=== PATIENT | male | born 1980 | race Caucasian/White ===

== ENCOUNTER → 2018-01-27 14:23 | Outpatient (CLI) | payer OTHER, MEDICAID, SELFPAY ==
--- NOTE | 2018-01-27 14:26 | DI.RAD.S_ITS ---
PROCEDURE: XR THORACIC SPINE 3V INDICATIONS: acute lower thoracic pain TECHNIQUE: 3 views of the thoracic spine were acquired. COMPARISON: None. FINDINGS: Bones: No fractures or dislocations. No suspicious bony lesions. 12 pairs of ribs are noted, and appear intact where visualized. Soft tissues: No paravertebral stripe thickening. IMPRESSION: Normal exam. Dictated by: Alan MÉNDEZ Interpreted: Ishan Emerson MD on 01/27/2018 at 15:18 Approved by: Ishan Emerson M.D. on 01/27/2018 at 17:12
== END ==
PROVIDERS: Family Provider Family Medicine; PCP Family Medicine; Visit Provider Family Medicine
DX: M54.6 Pain in thoracic spine (principal)
CPT/HCPCS: 72072

== ENCOUNTER → 2018-09-04 16:40 | Outpatient (CLI) | payer OTHER, MEDICAID, SELFPAY ==
--- NOTE | 2018-09-04 16:42 | DI.RAD.S_ITS ---
PROCEDURE: XR TOE LT MIN 2V INDICATIONS: toe dislocation TECHNIQUE: 3 views of the first toe(s) acquired. COMPARISON: None. FINDINGS: Bones: No dislocations. No suspicious bony lesions. There is a diagonal fracture through the lateral base of the first distal phalanx, minimally displaced. Soft tissues: No suspicious soft tissue densities. IMPRESSION: No soft tissue trauma found but there is a diagonal fracture along the lateral articular margin at the base of the first distal phalanx, minimally displaced. No dislocation seen. Dictated by: Ishan Emerson M.D. on 09/04/2018 at 15:59 Approved by: Ishan Emerson M.D. on 09/04/2018 at 16:01
== END ==
PROVIDERS: PCP Family Medicine; Visit Provider Family Medicine
DX: S92.422A Displaced fracture of distal phalanx of left great toe, initial encounter for closed fracture (principal)
CPT/HCPCS: 73660

== ENCOUNTER → 2018-10-07 12:17 | Outpatient (CLI) | payer OTHER, MEDICAID, SELFPAY ==
[2018-10-07 12:49] LABS: Add Manual Diff / Slide Review NO; Basophils Absolute Auto 100 /uL (0-100); Basophils Percent Auto 1.3 % (0-2); Eosinophils Absolute Auto 300 /uL (0-450); Eosinophils Percent Auto 6.7 % (2-4); Hematocrit 40.9 % (41-53); Hemoglobin 14.2 g/dL (13.5-17.5); Lymphocytes Absolute Auto 1800 /uL (1100-4500); Lymphocytes Percent Auto 39.8 % (25-40); Mean Corpuscular HGB Conc 34.8 % (30-36); Mean Corpuscular Hemoglobin 31.9 PG (26-34); Mean Corpuscular Volume 91.7 fL (80-100); Monocytes Absolute Auto 400 /uL (0-900); Monocytes Percent Auto 9.2 % (3-14); Neutrophils Absolute Auto 1900 /uL (1500-7000); Platelet Count 157 X10^3/uL (150-400); Red Blood Cell Count 4.46 X10^6/uL (4.5-5.9); Red Cell Distribution Width 13.2 % (11.6-14.8); White Blood Cell Count 4.4 X10^3/uL (4.5-11.0)
[2018-10-07 13:29] LABS: Alanine Aminotransferase 25 IU/L (21-72); Albumin 4.5 g/dL (3.5-5.0); Albumin Globulin Ratio 1.9 (1.0-2.8); Alkaline Phosphatase 86 U/L (38-126); Aspartate Aminotransferase 28 IU/L (17-59); BUN Creatinine Ratio 12.2 (6-22); Bilirubin Total 0.4 mg/dL (0.2-1.3); Blood Urea Nitrogen 11 mg/dL (9-20); Calcium 9.1 mg/dL (8.4-10.2); Carbon Dioxide 26 mmol/L (22-32); Chloride 103 mmol/L (98-107); Cholesterol 193 mg/dL (140-199); Estimated Glomerular Filt Rate > 60.0 mL/min (>60); Globulin 2.4 g/dL (1.7-4.1); Glucose 103 mg/dL (70-100); HDL Cholesterol 55 mg/dL (40-60); HEMOLYSIS < 15 (0-50); LDL Cholesterol Calculated 113 mg/dL (<100); Potassium 4.2 mmol/L (3.4-5.1); Sodium 138 mmol/L (137-145); Total Protein 6.9 g/dL (6.3-8.2); Triglycerides 123 mg/dL (35-150)
[2018-10-07 13:58] LABS: TSH w/ Reflex to FT4 1.79 uIU/mL (0.47-4.68)
== END ==
PROVIDERS: PCP Family Medicine; Visit Provider Family Medicine
DX: F32.9 Major depressive disorder, single episode, unspecified (principal); K25.9 Gastric ulcer, unspecified as acute or chronic, without hemorrhage or perforation
CPT/HCPCS: 36415; 80053; 80061; 84443; 85025

== ENCOUNTER → 2019-04-20 08:28 | Outpatient (CLI) | payer OTHER, MEDICAID, SELFPAY ==
--- NOTE | 2019-04-20 | DI.RAD.S_ITS ---
PROCEDURE: [place] SHOULDER INJECTION MR/CT RT INDICATIONS: RIGHT SHOULDER PAIN TECHNIQUE: The indications, alternatives, benefits, risks, and complications of the procedure were explained to the patient. Written informed consent was obtained and placed in the chart. The shoulder was examined fluoroscopically and a site for needle placement chosen for entry into the glenohumeral joint from an anterior approach. The skin was prepped and draped in a sterile fashion, and 1% lidocaine infiltrated from skin down to joint capsule. A spinal needle was inserted into the glenohumeral joint, and a small amount of iodinated contrast media injected to confirm intra-articular placement of the needle tip. This was followed by approximately 6 mL dilute solution of a gadolinium containing MR contrast agent. The needle was removed and a dressing was applied. The patient was given postprocedural instructions and sent to the MR suite for MR imaging. FINDINGS: A single fluoroscopic spot image demonstrates intra-articular location of injected iodinated contrast. IMPRESSION: Successful fluoroscopically guided administration of dilute Gadolinium solution into the shoulder joint for MR arthrogram. Dictated by: Geoffrey Barron M.D. on 04/20/2019 at 10:49 Approved by: Geoffrey Barron M.D. on 04/20/2019 at 10:50
--- NOTE | 2019-04-20 08:28 | DI.MRI.S_ITS ---
PROCEDURE: MR SHOULDER RT W CON INDICATIONS: Right shoulder pain TECHNIQUE: After the administration of 12 mL of dilute intra-articular Gadolinium contrast, oblique coronal T1 and T2 spin echo with fat saturation, oblique sagittal T1 spin echo with and without fat saturation, oblique sagittal T2 fast spin echo with fat saturation, axial T1 spin echo with fat saturation through the shoulder. COMPARISON: [facility], , [place] SHOULDER INJECTION MR/CT RT, 04/20/2019, 8:43. FINDINGS: Image quality: Excellent. Rotator cuff: There is mild irregularity along the articular surface of the of the supraspinatus tendon consistent with low grade partial-thickness tear. The infraspinatus and subscapularis tendons appear intact throughout. No rotator cuff muscle atrophy on sagittal images. Bones and bursae: No bone marrow contusions or fractures. Mild to moderate acromioclavicular and glenohumeral joint degeneration. The acromion demonstrates conventional anatomy, without an os acromiale. Capsule and soft tissues: There is a SLAP tear at the 12:00 position involving the biceps anchor. The glenohumeral ligaments appear intact. The long head of the biceps tendon demonstrates normal location and morphology. The rotator interval appears normal, without fibrosis. The coracohumeral ligament is of normal thickness. No intra-articular bodies. IMPRESSION: 1. SLAP tear of the superior labrum at the 12:00 position involving the biceps anchor. 2. Low-grade articular surface partial-thickness tear of the supraspinatus tendon. 3. Mild to moderate acromioclavicular and glenohumeral joint degeneration. Dictated by: Hilton Okeefe M.D. on 04/20/2019 at 17:49 Approved by: Hilton Okeefe M.D. on 04/20/2019 at 17:57
== END ==
PROVIDERS: PCP Family Medicine; Visit Provider Family Medicine
DX: M25.511 Pain in right shoulder (principal); S43.431A Superior glenoid labrum lesion of right shoulder, initial encounter; M75.111 Incomplete rotator cuff tear or rupture of right shoulder, not specified as traumatic; M19.011 Primary osteoarthritis, right shoulder
CPT/HCPCS: 23350; 73222; 77002

== ENCOUNTER → 2019-06-01 11:51 | Outpatient (CLI) | payer OTHER, MEDICAID, SELFPAY ==
--- NOTE | 2019-06-01 11:53 | DI.RAD.S_ITS ---
PROCEDURE: XR HIP W PEL IF DONE RT 2V INDICATIONS: right groin pain TECHNIQUE: AP pelvis with lateral view(s) of the right hip(s). COMPARISON: None. FINDINGS: Bones: No fractures or dislocations. Pelvic ring appears intact. No suspicious bony lesions. Soft tissues: The visualized bowel gas pattern is normal. No suspicious soft tissue calcifications. IMPRESSION: No trauma found, no joint effusion suspected. Source of asymmetric right-sided pain is not seen. Dictated by: Ishan Emerson M.D. on 06/01/2019 at 13:09 Approved by: Ishan Emerson M.D. on 06/01/2019 at 13:10
== END ==
PROVIDERS: PCP Family Medicine; Visit Provider Family Medicine
DX: M25.551 Pain in right hip (principal)
CPT/HCPCS: 73502

== ENCOUNTER 2019-10-02 21:25 | Emergency (ER) | payer OTHER, MEDICAID, SELFPAY ==
[2019-10-02 21:39] VITALS: BP 159/106; PULSE 108; RESP 18; TEMP 36.9; O2SAT 97; BMI 27.2
--- NOTE | 2019-10-02 21:44 | ED_ITS ---
HPI - Back Pain/Injury General Chief Complaint: Back Pain/Injury Stated Complaint: SEVERE NECK AND BACK PAIN Time Seen by Provider: 10/02/19 21:25 Source: patient Mode of arrival: Ambulatory Limitations: no limitations History of Present Illness HPI Narrative: 39M former smoker with history of chronic pain, insomnia, known R shoulder SLAP lesion, and fibromyalgia presents with his in the chief complaint of ongoing upper back and right shoulder pain. He has had the right shoulder pain for quite some time and has had a recent MRI noting rotator cuff and SLAP lesion, additionally states that for about the past month he has had midline upper back pain that started when he was laying in bed. He denies any traumatic injury such as falls, trips, motor vehicle collisions or other. He states on occasion he has numbness and tingling in his right hand but not currently. He denies any fever or chills and did vomit yesterday. He has had no contact with known persons with COVID-19. He denies IV drug abuse. He denies any trouble controlling bowel or bladder and has no weakness in his lower extremities. His pain is worse when he moves and improves with rest. MD Complaint: back pain Onset (ago): week(s) Duration: constant Similar Symptoms Previously: Yes Location: thoracic spine Severity: moderate Quality: sharp and aching Radiation: none Relieving factors: none Exacerbating factors: movement Context: other Associated symptoms: denies other symptoms Related Data Home Medications Medication Instructions Recorded Confirmed [cannabis] #0 07/04/17 08/21/19 bupropion HCl 300 mg 24 hr tablet, 300 mg PO QAM 07/10/19 10/02/19 extended release eszopiclone 3 mg tablet 3 mg PO BEDTIME 07/10/19 10/02/19 prazosin 5 mg capsule 5 mg PO BEDTIME 07/10/19 10/02/19 sertraline 50 mg tablet 50 mg PO DAILY 07/10/19 08/21/19 trazodone 50 mg tablet 100 mg PO BEDTIME tab 07/10/19 10/02/19 tramadol 200 mg PO BID PRN 10/02/19 10/02/19 Previous Rx's Medication Instructions Recorded ketoconazole 2 % shampoo 1 applictn TOPICAL QDAY #120 ml 08/27/18 back brace #1 each 09/15/18 pregabalin 150 mg capsule 150 mg PO BID #60 cap 02/02/19 omeprazole 40 mg capsule,delayed 40 mg PO QAM #90 cap 08/21/19 release triamcinolone acetonide 0.1 % 1 applictn TOPICAL BID #1 tube 08/21/19 topical cream dibucaine 1 % rectal ointment 1 applictn [place] PRN PRN #1 tube 09/04/19 ketorolac 10 mg PO TID PRN #10 tab 10/02/19 Allergies Allergy/AdvReac Type Severity Reaction Status Date / Time meloxicam Allergy Verified 10/02/19 21:39 Review of Systems Constitutional Constitutional: Denies chills, Denies fatigue, Denies fever(s), Denies frequent falls, Denies lethargy and Denies weakness Eyes Eyes: Denies change in vision, Denies eye discharge, Denies irritation and Denies loss of vision ENT Ears, Nose, Mouth, and Throat: Denies change in voice, Denies dizziness, Denies neck pain, Denies sore throat and Denies throat swelling Cardiovascular Cardiovascular: Denies chest pain, Denies irregular heart rhythm, Denies lightheadedness, Denies palpitations, Denies dyspnea, Denies dyspnea on exertion and Denies orthopnea Respiratory Respiratory: Denies cough, Denies dyspnea, Denies dyspnea on exertion and Denies wheezing Gastrointestinal Gastrointestinal: Denies abdominal pain, Denies change in bowel habits, Denies diarrhea, Denies nausea and Denies vomiting Genitourinary Genitourinary: Denies hematuria, Denies flank pain, Denies urinary incontinence and Denies urinary urgency Musculoskeletal Musculoskeletal: Reports back pain, Reports limited range of motion, Denies muscle weakness, Denies neck pain, Denies numbness and Denies tingling Integumentary/Breasts Skin/Breast: Denies pruritus, Denies erythema, Denies rash and Denies wounds Neurologic Neurologic: Denies behavioral changes, Denies confusion, Denies dizziness, Denies frequent falls, Denies loss of vision, Denies numbness, Denies tingling and Denies weakness Psychiatric Psychiatric: Denies anxiety, Denies behavioral changes, Denies confusion, Denies depression, Denies homicidal ideation and Denies suicidal ideation Endocrine Endocrine: Denies fatigue, Denies flushing and Denies palpitations Hematologic/Lymphatic Hematologic/Lymphatic: Denies easy bruising Allergic/Immunologic Allergic/Immunologic: Denies urticaria, Denies throat swelling and Denies wheezing Patient History Medical History Ankle pain (Resolved ~1994) Anxiety (Chronic 1994) Chronic back pain (Chronic 1994) Chronic headaches (Chronic 1994) Colon polyps (Resolved) Depression (Chronic 1994) Eczema (Chronic 2007) Fractures (Resolved 1994) Hearing loss (Chronic 2002) Hemorrhoids (Chronic 2007) PTSD (post-traumatic stress disorder) (Chronic 1994) RLS (restless legs syndrome) (Chronic) Shoulder pain (Chronic 1994) SLAP (superior labrum from anterior to posterior) lesion (Acute) Sleep apnea (Chronic) Vertigo (Chronic 1978) Surgical History Anesthesia (Resolved) History of colonoscopy with polypectomy (Resolved) Status post arthroscopy (Resolved 1994) Family History Brother Seizure disorder Mother History of hip replacement, total Social History Smoking Status: Former smoker Smoking Status: Former smoker alcohol intake frequency: holidays/special occasions only Substance Use Type: does not use Exam Narrative Exam Narrative: GENERAL: [39] year old patient appears stated age. Well- nourished, well-developed patient, in mild distress. Flat affect HEAD: Atraumatic. Normocephalic. EYES: Pupils equal round and reactive. Extraocular motions intact. No scleral icterus. No injection or drainage. ENT: Nose without bleeding, purulent drainage. Throat without erythema, tonsillar hypertrophy or exudate. Airway patent. NECK: Trachea midline. Non tender CARDIOVASCULAR: Regular rate and rhythm without murmurs, gallops, or rubs. RESPIRATORY: Clear to auscultation. Breath sounds equal bilaterally. No wheezes, rales, or rhonchi. GASTROINTESTINAL: Abdomen soft, non-tender, nondistended. EXTREMITIES: Right shoulder with decreased range of motion secondary to pain. No decrease in strength or sensation noted. BACK: Tender in the midline and paraspinals of his mid Thoracics without any palpable deformities such as step-off. No saddle anesthesia. 5/5 LE strength. B/L patellar reflexes 2+ NEURO: AOx3. SKIN: No rash or erythema of visible areas Initial Vital Signs Initial Vital Signs: Vital Signs Temperature 98.4 F 10/02/19 21:39 Pulse Rate 108 H 10/02/19 21:39 Respiratory Rate 18 10/02/19 21:39 Blood Pressure 159/106 H 10/02/19 21:39 Pulse Oximetry 97 10/02/19 21:39 Procedures Orthopedic Splinting/Casting Injury #1: Side: right Upper Extremity Injury Location: shoulder Upper Extremity Immobilizer: sling/shoulder immobilizer Post splinting neuro exam: intact Post splinting vascular exam: intact Placed by: Nursing Course Orders Ordered: ED Orders 10/02/19 21:58 XR thoracic spine 3V Stat Discontinued Medications Hydrocodone Bitart/Acetaminophen (Vicodin 5/325 Prepack) 1 bottle MISC SEEINSTR ONE Stop: 10/02/19 22:38 Last Admin: 10/02/19 23:06 Dose: 1 bottle Documented by: DEDE Ketorolac Tromethamine (Toradol) 60 mg IM NOW ONE Stop: 10/02/19 21:59 Last Admin: 10/02/19 22:09 Dose: 60 mg Documented by: DEDE Vital Signs Vital signs: Vital Signs - 8 hr 10/02/19 21:39 10/02/19 23:15 Temperature 98.4 F Pulse Rate 108 H 85 Respiratory Rate 18 19 Blood Pressure 159/106 H 159/106 H Pulse Oximetry 97 96 MDM - Back Pain/Injury Imaging Data Thoracic Xray: Attestation: I personally reviewed and interpreted this imaging study as follows: My Impression: No obvious bony abnormality Discharge Plan Departure Patient Disposition: Home Clinical Impression: Acute midline thoracic back pain, Chronic pain in right shoulder Discharge Date/Time: 10/02/19 23:16 Instructions: DI for Thoracic Back Pain Activity Restrictions/Additional Instructions: *You have been diagnosed with [acute on chronic midthoracic pain and ongoing pain from rotator cuff injury and right shoulder] *What to do: *Take medications as directed *Follow up with your primary care provider in 2-3 days, call for an appointment. Let them know you were seen in the Emergency Department and that we ask that you be seen in follow up. For ongoing back pain your doctor may consider options such as MRI or Physical Therapy *Return to ER if you should have any new, worsening or concerning symptoms Radiographic study has been interpreted by an emergency physician. The official diagnosis by radiology will be performed within the next 24 hours and should there be any change in outcome we will notify you of how to proceed. Prescriptions: New ketorolac 10 mg tablet 10 mg PO TID PRN (Reason: pain) Qty: 10 RF: 0 No Action [cannabis] Qty: 0 RF: 0 (DME) back brace misc See Dose Instructions .ROUTE .MEDSUPPLY Qty: 1 RF: 0 pregabalin 150 mg capsule 150 mg PO BID Qty: 60 RF: 5 Nupercainal 1 % ointment 1 applictn [place] PRN PRN (Reason: rectal discomfort) Qty: 1 RF: 0 ketoconazole 2 % shampoo 1 applictn Topical QDAY Qty: 120 RF: 2 eszopiclone [Lunesta] 3 mg tablet 3 mg PO BEDTIME RF: 0 prazosin 5 mg capsule 5 mg PO BEDTIME RF: 0 sertraline 50 mg tablet 50 mg PO DAILY RF: 0 bupropion HCl 300 mg tablet extended release 24 hr 300 mg PO QAM RF: 0 omeprazole 40 mg capsule,delayed release(DR/EC) 40 mg PO QAM Qty: 90 RF: 3 triamcinolone acetonide 0.1 % cream 1 applictn Topical BID Qty: 1 RF: 1 trazodone 50 mg tablet 100 mg PO BEDTIME RF: 0 tramadol 50 mg tablet 200 mg PO BID PRN (Reason: Pain (Scale Score 1-3)) RF: 0 Referrals: Deyanira Nath DO [Primary Care Provider] -
--- NOTE | 2019-10-02 21:58 | DI.RAD.S_ITS ---
PROCEDURE: XR THORACIC SPINE 3V INDICATIONS: severe pain TECHNIQUE: 3 views of the thoracic spine were acquired. COMPARISON: [facility], , XR THORACIC SPINE 3V, 01/27/2018, 14:07. FINDINGS: Bones: On the lateral views, the cervicothoracic junction is adequately visualized and the alignment through this region is within normal limits. The vertebral body heights are within normal limits throughout the thoracic spine without evidence to suggest acute compression fracture. The bone mineralization is within normal limits. Mild degenerative changes of the thoracic spine are evident. Soft tissues: The imaged overlying soft tissues of the chest are within normal limits. IMPRESSION: Mild degenerative changes of the thoracic spine. No fractures. Dictated by: Fredi Brian M.D. on 10/03/2019 at 7:45 Approved by: Fredi Brian M.D. on 10/03/2019 at 7:46
[2019-10-02] MEDS: KETOROLAC 60 MG/2 ML VIAL IM (22:09)
[2019-10-02] MEDS: HYDROCODONE/ACET 5/325 PREPACK 1 BOTTLE MISC (23:06)
[2019-10-02 23:15] VITALS: BP 159/106; PULSE 85; RESP 19; O2SAT 96
== END 2019-10-02 23:16 | disposition home or self-care (01) ==
PROVIDERS: Emergency Provider Emergency Medicine; PCP Family Medicine
DX: M54.6 Pain in thoracic spine (principal); M25.511 Pain in right shoulder
CPT/HCPCS: 72072; 96372; 99283; 99284; J1885

== ENCOUNTER → 2019-11-02 09:42 | Outpatient (CLI) | payer OTHER, MEDICAID, SELFPAY ==
--- NOTE | 2019-11-02 09:44 | DI.MRI.S_ITS ---
PROCEDURE: MR CERVICAL SPINE WO CON INDICATIONS: Spinal stenosis, cervical region TECHNIQUE: Noncontrast sagittal T1 spin echo and T2 fast spin echo, sagittal STIR, foraminal oblique sagittal T2 fast spin echo, and axial gradient echo or T2 fast spin echo through the cervical spine. COMPARISON: None. FINDINGS: Image quality: Diagnostic, with note made of motion artifact. Alignment and Curvature: There is normal bony alignment. Bone Marrow: Marrow demonstrates normal overall signal. Spinal Cord: Visualized spinal cord has normal size and signal. No cerebellar tonsillar herniation. Paraspinous Soft Tissues: No paravertebral masses. Prevertebral soft tissues are normal in thickness. C2-C3: The disc height is well-preserved. Loss of disc signal is seen at this level. A mild degree of generalized disc osteophyte complex is seen. There is moderate right-sided and mild left-sided facet hypertrophy seen. There is moderate right-sided and no significant left-sided neural foraminal narrowing seen. Minimal central canal narrowing is seen. C3-C4: The disc height is well-preserved. Loss of disc signal is seen at this level. A mild degree of generalized disc osteophyte complex is seen. There is moderate right-sided and mild to moderate left-sided neural foraminal narrowing seen. Moderate to severe right-sided and minimal left-sided neural foraminal narrowing can be seen. Mild to moderate central canal narrowing is seen. There is associated mass effect upon the ventral spinal cord. C4-C5: The disc height is well-preserved. Loss of disc signal is seen at this level. A mild degree of generalized disc osteophyte complex is seen. [id number] bilateral neural foraminal narrowing can be seen. There is moderate right-sided and at least moderate left-sided neural foraminal narrowing seen. Mild central canal narrowing is seen. C5-C6: The disc height is well-preserved. Loss of disc signal is seen at this level. Mild to moderate disc osteophyte complex is seen. Moderate bilateral facet hypertrophy is seen, left worse than right. There is moderate left-sided and mild to moderate right-sided neural foraminal narrowing seen. Mild to moderate central canal narrowing is seen. C6-C7: The disc height is well-preserved. Loss of disc signal is seen at this level. Moderate disc osteophyte complex is seen, with a right lateral recess/foraminal disc osteophyte extrusion seen. There is moderate to severe bilateral neural foraminal narrowing seen. Moderate to severe central canal narrowing is seen. There is associated mass effect upon the ventral spinal cord. C7-T1: The disc height and disc signal are relatively well-preserved. A mild degree of generalized disc osteophyte complex is seen. There is moderate left-sided and no significant right-sided neural foraminal narrowing seen. No significant central canal narrowing is seen. IMPRESSION: At C6-C7, there is a focal right lateral recess/right foraminal disc osteophyte extrusion. At this level, moderate to severe bilateral neural foraminal narrowing is seen and there is moderate to severe central canal narrowing present. Milder degenerative changes are seen elsewhere. Dictated by: Nikko Byrne M.D. on 11/02/2019 at 10:23 Approved by: Nikko Byrne M.D. on 11/02/2019 at 10:28
== END ==
PROVIDERS: PCP Family Medicine; Referring Provider Orthopaedic Surgery; Visit Provider Orthopaedic Surgery
DX: M48.02 Spinal stenosis, cervical region (principal); M50.223 Other cervical disc displacement at C6-C7 level; M47.812 Spondylosis without myelopathy or radiculopathy, cervical region
CPT/HCPCS: 72141

== ENCOUNTER 2020-02-02 01:41 | Emergency (ER) | payer OTHER, MEDICAID, SELFPAY ==
[2020-02-02 01:50] VITALS: BP 164/114; PULSE 117; RESP 20; TEMP 37.3; O2SAT 97; BMI 26.4
[2020-02-02 02:05] VITALS: BP 154/109; PULSE 104; RESP 15
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
== END 2020-02-02 02:19 | disposition home or self-care (01) ==
PROVIDERS: Emergency Provider Emergency Medicine; PCP Family Medicine
DX: T24.022A Burn of unspecified degree of left knee, initial encounter (principal); X12.XXXA Contact with other hot fluids, initial encounter
CPT/HCPCS: 99281

== ENCOUNTER → 2020-07-05 15:59 | Outpatient (CLI) | payer OTHER, MEDICAID, SELFPAY ==
--- NOTE | 2020-07-05 16:04 | DI.RAD.S_ITS ---
PROCEDURE: XR ACUTE ABDOMEN SERIES INDICATIONS: abdo. pain TECHNIQUE: One view chest and two views of the abdomen were acquired. COMPARISON: None. FINDINGS: Surgical changes and devices: None. Chest: Lungs are clear. Heart size is normal. No pleural effusions. No pneumoperitoneum. Abdomen: Bowel gas pattern is normal. No suspicious calcifications. Visualized solid organ contours appear normal. Bones: No suspicious bony lesions. IMPRESSION: No source for abdominal pain identified. If pain persists, consider CT. Dictated by: Alan WHITE Interpreted: Debra Tejeda MD on 07/05/2020 at 16:41 Approved by: Debar Tejeda M.D. on 07/05/2020 at 17:04
[2020-07-05 17:02] LABS: Add Manual Diff / Slide Review NO; Basophils Absolute Auto 100 /uL (0-100); Basophils Percent Auto 1.2 % (0-2); Eosinophils Absolute Auto 200 /uL (0-450); Eosinophils Percent Auto 2.7 % (2-4); Hemoglobin 15.3 g/dL (13.5-17.5); Lymphocytes Absolute Auto 2200 /uL (1100-4500); Mean Corpuscular HGB Conc 34.8 % (30-36); Monocytes Absolute Auto 800 /uL (0-900); Monocytes Percent Auto 11.5 % (3-14); Neutrophils Absolute Auto 3900 /uL (1500-7000); Neutrophils Percent Auto 54.6 % (50-75); Platelet Count 226 X10^3/uL (150-400); Red Blood Cell Count 4.78 X10^6/uL (4.5-5.9); Red Cell Distribution Width 13.6 % (11.6-14.8); White Blood Cell Count 7.2 X10^3/uL (4.5-11.0)
[2020-07-05 17:34] LABS: Alanine Aminotransferase 10 IU/L (<50); Albumin 4.8 g/dL (3.5-5.0); Albumin Globulin Ratio 1.7 (1.0-2.8); Alkaline Phosphatase 67 U/L (38-126); Aspartate Aminotransferase 26 IU/L (17-59); BUN Creatinine Ratio 11.3 (6-22); Bilirubin Total 0.8 mg/dL (0.2-1.3); Blood Urea Nitrogen 11 mg/dL (9-20); Calcium 9.8 mg/dL (8.4-10.2); Carbon Dioxide 27 mmol/L (22-32); Chloride 101 mmol/L (98-107); Estimated Glomerular Filt Rate > 60.0 mL/min (>60); Globulin 2.8 g/dL (1.7-4.1); Glucose 108 mg/dL (70-100); HEMOLYSIS < 15 (0-50); Lipase 85 U/L (23-300); Sodium 135 mmol/L (137-145); Total Protein 7.6 g/dL (6.3-8.2)
== END ==
PROVIDERS: PCP Family Medicine; Referring Provider Registered Nurse; Visit Provider Registered Nurse
DX: R10.9 Unspecified abdominal pain (principal); R11.10 Vomiting, unspecified
CPT/HCPCS: 36415; 74022; 80053; 83690; 85025

== ENCOUNTER 2020-08-10 15:22 | Emergency (ER) | payer OTHER, MEDICAID, SELFPAY ==
[2020-08-10] VITALS (13 sets, daily range): BP systolic 142–167; BP diastolic 90–116; PULSE 86–137; RESP 13–24; TEMP 35.7; O2SAT 94–99; BMI 25.7
[2020-08-10] MEDS: ONDANSETRON 4 MG/2 ML INJ (15:49)
[2020-08-10 15:57] LABS: Add Manual Diff / Slide Review NO; Basophils Absolute Auto 100 /uL (0-100); Eosinophils Absolute Auto 200 /uL (0-450); Eosinophils Percent Auto 3.3 % (2-4); Hematocrit 48.5 % (41-53); Hemoglobin 16.9 g/dL (13.5-17.5); Lymphocytes Absolute Auto 2200 /uL (1100-4500); Lymphocytes Percent Auto 35.7 % (25-40); Mean Corpuscular HGB Conc 34.8 % (30-36); Mean Corpuscular Hemoglobin 32.4 PG (26-34); Mean Corpuscular Volume 93.2 fL (80-100); Monocytes Absolute Auto 700 /uL (0-900); Monocytes Percent Auto 11.8 % (3-14); Neutrophils Absolute Auto 3000 /uL (1500-7000); Neutrophils Percent Auto 48.2 % (50-75); Platelet Count 248 X10^3/uL (150-400); Red Cell Distribution Width 14.4 % (11.6-14.8); White Blood Cell Count 6.2 X10^3/uL (4.5-11.0)
[2020-08-10 16:05] LABS: Alanine Aminotransferase 14 IU/L (<50); Albumin 5.1 g/dL (3.5-5.0); Albumin Globulin Ratio 1.6 (1.0-2.8); Alkaline Phosphatase 104 U/L (38-126); Aspartate Aminotransferase 39 IU/L (17-59); BUN Creatinine Ratio 14.3 (6-22); Bilirubin Total 1.1 mg/dL (0.2-1.3); Blood Urea Nitrogen 12 mg/dL (9-20); Calcium 10.1 mg/dL (8.4-10.2); Carbon Dioxide 26 mmol/L (22-32); Chloride 99 mmol/L (98-107); Estimated Glomerular Filt Rate > 60.0 mL/min (>60); Globulin 3.2 g/dL (1.7-4.1); Glucose 96 mg/dL (70-100); HEMOLYSIS < 15 (0-50); Lipase 117 U/L (23-300); Sodium 137 mmol/L (137-145); Total Protein 8.3 g/dL (6.3-8.2)
[2020-08-10] MEDS: SODIUM CHLORIDE 0.9% 1,000 ML 1000 ML IV ×2 (16:09→20:12)
[2020-08-10] MEDS: PANTOPRAZOLE 40 MG VIAL IV (16:09)
[2020-08-10 16:15] LABS: COVID19 -Nasal RAPID Negative (Negative)
[2020-08-10 19:11] LABS: Bacteria Urine Occasional (0-1); Culture Indicated Urine Cult Not Indicated; Hyaline Casts Urine 5-10/LPF; Mucus Urine 1+ (Negative); RBC Urine 0-1/HPF (0-5/HPF); Squamous Epithelial Cell Urine None Seen (0-5/HPF); WBC Urine 0-1/HPF (0-5/HPF)
[2020-08-10] MEDS: HYDROMORPHONE 1 MG INJ IV (19:56)
--- NOTE | 2020-08-10 21:44 | ED.NAVMDI ---
HPI - Nausea/Vomiting/Diarrhea General Chief complaint: Neck Pain/Injury Stated complaint: vomiting, last couple of days Time Seen by Provider: 08/10/20 15:48 Source: patient Mode of arrival: Ambulatory Limitations: no limitations History of Present Illness HPI Narrative: 40M former smoker with history of chronic neck, back, and shoulder pain presents with family and the chief complaint of increasing episodes of vomiting over the past few days. He now has fatigue and weakness and increasing generalized pain as he hasn't been able to keep any of his medications down. He called his nurse and was instructed to present to the ED for evaluation. He's had no fever or chills and denies abdominal pain. He denies recent travel, exposure to bad food, or recent antibiotics. He states this happens to him on occasion for some unknown reason. He denies runny nose, sore throat, cough, loss of smell or exposure to persons known or suspected to have COVID MD complaint: nausea and vomiting Onset (ago): day(s) Description of Vomiting: food contents and bilious Description of Diarrhea: none Location of pain: diffuse Pain Consistency: constant Exacerbating factors: none Associated symptoms: loss of appetite, nausea/vomiting and weakness Related Data Home Medications Medication Instructions Recorded Confirmed [cannabis] #0 07/04/17 07/05/20 bupropion HCl 300 mg 24 hr tablet, 300 mg PO QAM 07/10/19 07/05/20 extended release prazosin 5 mg capsule 5 mg PO BEDTIME 07/10/19 07/05/20 trazodone 50 mg tablet 100 mg PO BEDTIME tab 07/10/19 07/05/20 sertraline 50 mg tablet 200 mg PO DAILY tab 12/23/19 07/05/20 zolpidem 10 mg tablet 10 mg PO BEDTIME 07/05/20 07/05/20 Previous Rx's Medication Instructions Recorded ketoconazole 2 % shampoo 1 applictn TOPICAL QDAY #120 ml 08/27/18 back brace #1 each 09/15/18 triamcinolone acetonide 0.1 % 1 applictn TOPICAL BID #1 tube 08/21/19 topical cream dibucaine 1 % rectal ointment 1 applictn [place] PRN PRN #1 tube 09/04/19 omeprazole 40 mg capsule,delayed 40 mg PO QAM #90 cap 04/08/20 release oxycodone-acetaminophen 7.5 mg-325 1 tab PO Q8H PRN #90 tab 07/20/20 mg tablet ondansetron 4 mg PO TID-QID PRN #10 tab 08/10/20 promethazine 12.5 mg [place] Q4-6H PRN #12 each 08/10/20 Allergies Allergy/AdvReac Type Severity Reaction Status Date / Time meloxicam Allergy Verified 08/10/20 15:34 Review of Systems Constitutional Constitutional: Denies chills, Reports fatigue, Denies fever(s), Denies frequent falls, Denies lethargy, Reports poor appetite and Reports weakness Eyes Eyes: Denies change in vision, Denies eye discharge, Denies irritation and Denies loss of vision ENT Ears, Nose, Mouth, and Throat: Denies change in voice, Denies dizziness, Reports neck pain, Denies sore throat and Denies throat swelling Cardiovascular Cardiovascular: Denies chest pain, Denies irregular heart rhythm, Denies lightheadedness, Denies palpitations, Denies dyspnea, Denies dyspnea on exertion and Denies orthopnea Respiratory Respiratory: Denies cough, Denies dyspnea, Denies dyspnea on exertion and Denies wheezing Gastrointestinal Gastrointestinal: Denies abdominal pain, Denies change in bowel habits, Denies diarrhea, Reports nausea and Reports vomiting Musculoskeletal Musculoskeletal: Reports back pain, Reports arthralgias, Reports neck pain and Denies numbness Integumentary/Breasts Skin/Breast: Denies pruritus, Denies erythema, Denies rash and Denies wounds Neurologic Neurologic: Denies behavioral changes, Denies confusion, Denies dizziness, Denies frequent falls, Denies loss of vision, Denies numbness and Reports weakness Psychiatric Psychiatric: Denies anxiety, Denies behavioral changes, Denies confusion, Denies depression, Denies homicidal ideation and Denies suicidal ideation Endocrine Endocrine: Reports fatigue, Denies flushing and Denies palpitations Hematologic/Lymphatic Hematologic/Lymphatic: Denies easy bruising Allergic/Immunologic Allergic/Immunologic: Denies urticaria, Denies throat swelling and Denies wheezing Patient History Medical History Ankle pain () Anxiety (1994) Chronic back pain (1994) Chronic headaches (1994) Chronic neck pain Chronic right shoulder pain Chronic thoracic back pain Colon polyps Depression (1994) Eczema (2007) Foraminal stenosis of cervical region Fractures (1994) Hearing loss (2002) Hemorrhoids (2007) Low back pain PTSD (post-traumatic stress disorder) (1994) RLS (restless legs syndrome) Segmental and somatic dysfunction of abdomen and other regions Shoulder pain (1994) SLAP (superior labrum from anterior to posterior) lesion Sleep apnea Vertigo (1978) Surgical History Anesthesia History of colonoscopy with polypectomy Status post arthroscopy (1994) Family History Brother Seizure disorder Mother History of hip replacement, total Social History Smoking Status: Former smoker Smoking Status: Former smoker tobacco type: vaping alcohol intake frequency: holidays/special occasions only Substance Use Type: marijuana Exam Narrative Exam Narrative: GENERAL: [40] year old patient appears stated age. Well-nourished, well-developed patient, in obvious distress. Clearly uncomfortable, holding an emesis bag HEAD: Atraumatic. Normocephalic. EYES: Pupils equal round and reactive. Extraocular motions intact. No scleral icterus. No injection or drainage. ENT: Moist mucous membranes Nose without bleeding, purulent drainage. Throat without erythema, tonsillar hypertrophy or exudate. Airway patent. NECK: Trachea midline. Non tender CARDIOVASCULAR: Regular rate and rhythm without murmurs, gallops, or rubs. RESPIRATORY: Clear to auscultation. Breath sounds equal bilaterally. No wheezes, rales, or rhonchi. GASTROINTESTINAL: Abdomen soft, minimal diffuse tenderness, nondistended. EXTREMITIES: No edema or joint tenderness. BACK: Nontender without deformity or crepitance. No flank tenderness. NEURO: AOx3. SKIN: No rash or erythema of visible areas Initial Vital Signs Initial Vital Signs: Vital Signs Temperature 96.3 F L 08/10/20 15:28 Pulse Rate 137 H 08/10/20 15:28 Respiratory Rate 15 08/10/20 15:28 Blood Pressure 165/116 H 08/10/20 15:28 Pulse Oximetry 99 08/10/20 15:28 Course Course Course Narrative: Patient demonstrates significant improvement after above-stated therapies including antiemetics, proton pump inhibitors and 2 bags of fluid. Return precautions have been given and questions answered to his apparent satisfaction. Orders Ordered: ED Orders 08/10/20 15:36 Complete Blood Count AUTO DIFF Stat Comprehensive Metabolic Panel Stat Lipase Stat 08/10/20 15:45 COVID19 Stat 08/10/20 18:20 Urine Microscopic Stat Discontinued Medications Hydromorphone HCl (Hydromorphone 1 Mg Inj) 1 mg IV NOW ONE Stop: 08/10/20 19:53 Last Admin: 08/10/20 19:56 Dose: 1 mg Documented by: HUBERT Sodium Chloride (Normal Saline 0.9%) 1,000 mls @ 1,000 mls/hr IV CONT JULY Last Infusion: 08/10/20 18:18 Dose: 0 mls/hr Documented by: Admin: 08/10/20 16:09 Dose: 1,000 mls/hr Documented by: HUBERT Sodium Chloride (Normal Saline 0.9%) 1,000 mls @ 1,000 mls/hr IV BOLUS ONE Stop: 08/10/20 21:04 Last Infusion: 08/10/20 21:36 Dose: 0 mls/hr Documented by: Admin: 08/10/20 20:12 Dose: 1,000 mls/hr Documented by: HUBERT Ondansetron HCl (Ondansetron 4 Mg/2 Ml Inj) 4 mg IV NOW ONE Stop: 08/10/20 15:49 Last Admin: 08/10/20 16:25 Dose: Not Given Documented by: HUBERT Ondansetron HCl (Ondansetron 4 Mg Odt Prepack) 1 bottle MISC SEEINSTR ONE Stop: 08/10/20 21:46 Last Admin: 08/10/20 21:53 Dose: 1 bottle Documented by: HUBERT Pantoprazole Sodium (Pantoprazole 40 Mg Vial) 40 mg IV NOW ONE Stop: 08/10/20 15:49 Last Admin: 08/10/20 16:09 Dose: 40 mg Documented by: HUBERT Pantoprazole Sodium (Pantoprazole 40 Mg Vial) 40 mg IV NOW ONE Stop: 08/10/20 20:06 Last Admin: 08/10/20 20:11 Dose: Not Given Documented by: HUBERT Vital Signs Vital signs: Vital Signs - 8 hr 08/10/20 15:28 08/10/20 16:02 08/10/20 16:30 Temperature 96.3 F L Pulse Rate 137 H 93 H 86 Respiratory Rate 15 15 13 Blood Pressure 165/116 H Pulse Oximetry 99 96 95 08/10/20 17:00 08/10/20 17:30 08/10/20 18:00 Temperature Pulse Rate 91 H 97 H 96 H Respiratory Rate 18 16 Blood Pressure Pulse Oximetry 94 97 94 08/10/20 18:31 08/10/20 19:00 08/10/20 19:30 Temperature Pulse Rate 96 H 94 H 90 Respiratory Rate 19 Blood Pressure 144/99 H 150/95 H Pulse Oximetry 97 96 96 08/10/20 20:00 08/10/20 20:30 08/10/20 21:00 Temperature Pulse Rate 101 H 95 H 104 H Respiratory Rate 16 20 24 Blood Pressure 167/107 H 155/102 H 166/90 H Pulse Oximetry 99 97 97 08/10/20 21:30 Temperature Pulse Rate 101 H Respiratory Rate Blood Pressure 142/91 H Pulse Oximetry 97 MDM - Nausea/Vomiting/Diarrhea Lab Data Result diagrams: 08/10/20 15:36 08/10/20 15:36 Labs: Lab Results 08/10/20 08/10/20 08/10/20 Range/Units 15:36 15:36 15:45 WBC 6.2 (4.5-11.0) X10^3/uL RBC 5.20 (4.5-5.9) X10^6/uL Hgb 16.9 (13.5-17.5) g/dL Hct 48.5 (41-53) % MCV 93.2 (80-100) fL MCH 32.4 (26-34) PG MCHC 34.8 (30-36) % RDW 14.4 (11.6-14.8) % Plt Count 248 (150-400) X10^3/uL Neut % (Auto) 48.2 L (50-75) % Lymph % (Auto) 35.7 (25-40) % [place] % (Auto) 11.8 (3-14) % Eos % (Auto) 3.3 (2-4) % Baso % (Auto) 1.0 (0-2) % Neut # (Auto) 3000 (2483-3590) /uL Lymph # (Auto) 2200 (6760-8631) /uL [place] # (Auto) 700 (0-900) /uL Eos # (Auto) 200 (0-450) /uL Baso # (Auto) 100 (0-100) /uL Sodium 137 (137-145) mmol/L Potassium 4.0 (3.4-5.1) mmol/L Chloride 99 (98-107) mmol/L Carbon Dioxide 26 (22-32) mmol/L BUN 12 (9-20) mg/dL Creatinine 0.84 (0.66-1.25) mg/dL Estimated GFR > 60.0 (>60) mL/min BUN/Creatinine Ratio 14.3 (6-22) Glucose 96 (70-100) mg/dL Calcium 10.1 (8.4-10.2) mg/dL Total Bilirubin 1.1 (0.2-1.3) mg/dL AST 39 (17-59) IU/L ALT 14 (<50) IU/L Alkaline Phosphatase 104 (38-126) U/L Total Protein 8.3 H (6.3-8.2) g/dL Albumin 5.1 H (3.5-5.0) g/dL Globulin 3.2 (1.7-4.1) g/dL Albumin/Globulin Ratio 1.6 (1.0-2.8) Lipase 117 (23-300) U/L Urine RBC (0-5/HPF) Urine WBC (0-5/HPF) Ur Squamous Epith Cells (0-5/HPF) Urine Bacteria (None) Hyaline Casts (None) Urine Mucus (Negative) Ur Culture Indicated? SARS-CoV-2 (PCR) Negative (Negative) 08/10/20 Range/Units 18:20 WBC (4.5-11.0) X10^3/uL RBC (4.5-5.9) X10^6/uL Hgb (13.5-17.5) g/dL Hct (41-53) % MCV (80-100) fL MCH (26-34) PG MCHC (30-36) % RDW (11.6-14.8) % Plt Count (150-400) X10^3/uL Neut % (Auto) (50-75) % Lymph % (Auto) (25-40) % [place] % (Auto) (3-14) % Eos % (Auto) (2-4) % Baso % (Auto) (0-2) % Neut # (Auto) (8732-5082) /uL Lymph # (Auto) (0682-6304) /uL [place] # (Auto) (0-900) /uL Eos # (Auto) (0-450) /uL Baso # (Auto) (0-100) /uL Sodium (137-145) mmol/L Potassium (3.4-5.1) mmol/L Chloride (98-107) mmol/L Carbon Dioxide (22-32) mmol/L BUN (9-20) mg/dL Creatinine (0.66-1.25) mg/dL Estimated GFR (>60) mL/min BUN/Creatinine Ratio (6-22) Glucose (70-100) mg/dL Calcium (8.4-10.2) mg/dL Total Bilirubin (0.2-1.3) mg/dL AST (17-59) IU/L ALT (<50) IU/L Alkaline Phosphatase (38-126) U/L Total Protein (6.3-8.2) g/dL Albumin (3.5-5.0) g/dL Globulin (1.7-4.1) g/dL Albumin/Globulin Ratio (1.0-2.8) Lipase (23-300) U/L Urine RBC 0-1/hpf (0-5/HPF) Urine WBC 0-1/hpf (0-5/HPF) Ur Squamous Epith Cells None seen (0-5/HPF) Urine Bacteria Occasional (0-1) (None) Hyaline Casts 5-10/lpf (None) Urine Mucus 1+ H (Negative) Ur Culture Indicated? Cult not indicated SARS-CoV-2 (PCR) (Negative) Urine Dip Bedside Urine Glucose Negative Bedside Urine Bilirubin - Negative Bedside Urine Ketone +++ 80 Urine Specific [place] 1.030 Bedside Urine Occult Blood - Negative Bedside Urine pH 6 Bedside Urine Protein +/- 15 Bedside Urine Urobilinogen - Negative Bedside Urine Nitrite - Negative Bedside Urine Leukocytes - Negative Esterase MDM Narrative Medical decision making narrative: Multiple etiologies for patient's symptoms considered including: [Cyclic vomiting versus cannabis hyperemesis versus chronic opioid use versus bowel obstruction versus opioid withdrawal versus pancreatitis versus other] Patient's symptoms improved over duration of stay with above-stated therapies. Findings and discharge diagnosis discussed with patient/family followed by verbalization of understanding Return precautions discussed with patient/family whom verbalize understanding. Discharge Plan Departure Patient Disposition: Home Clinical Impression: Vomiting Qualifiers: Vomiting type: unspecified Vomiting Intractability: non-intractable Nausea presence: with nausea Qualified Code(s): R11.2 - Nausea with vomiting, unspecified Instructions: DI for Vomiting -- Adult Activity Restrictions/Additional Instructions: *You have been diagnosed with [chronic pain and vomiting] *What to do: *Take medications as directed *Follow up with your primary care provider in 2-3 days, call for an appointment. Let them know you were seen in the Emergency Department and that we ask that you be seen in follow up *Return to ER if you should have any new, worsening or concerning symptoms Prescriptions: New promethazine 12.5 mg suppository 12.5 mg [place] Q4-6H PRN (Reason: nausea and vomiting) Qty: 12 RF: 0 ondansetron 4 mg tablet,disintegrating 4 mg PO TID-QID PRN (Reason: nausea and vomiting) Qty: 10 RF: 0 No Action [cannabis] Qty: 0 RF: 0 (DME) back brace misc See Dose Instructions .ROUTE .MEDSUPPLY Qty: 1 RF: 0 Nupercainal 1 % ointment 1 applictn [place] PRN PRN (Reason: rectal discomfort) Qty: 1 RF: 0 omeprazole 40 mg capsule,delayed release(DR/EC) 40 mg PO QAM Qty: 90 RF: 3 oxycodone-acetaminophen 7.5-325 mg tablet 1 tab PO Q8H PRN (Reason: pain) Qty: 90 RF: 0 ketoconazole 2 % shampoo 1 applictn Topical QDAY Qty: 120 RF: 2 prazosin 5 mg capsule 5 mg PO BEDTIME RF: 0 bupropion HCl 300 mg tablet extended release 24 hr 300 mg PO QAM RF: 0 sertraline 50 mg tablet 200 mg PO DAILY RF: 0 triamcinolone acetonide 0.1 % cream 1 applictn Topical BID Qty: 1 RF: 1 trazodone 50 mg tablet 100 mg PO BEDTIME RF: 0 zolpidem [Ambien] 10 mg tablet 10 mg PO BEDTIME RF: 0 Referrals: Deyanira Nath DO [Primary Care Provider] -
[2020-08-10] MEDS: ONDANSETRON 4 MG ODT PREPACK 1 BOTTLE MISC (21:53)
== END 2020-08-10 22:01 | disposition home or self-care (01) ==
PROVIDERS: Emergency Medicine; Emergency Provider Emergency Medicine; PCP Family Medicine
DX: R11.2 Nausea with vomiting, unspecified (principal); R53.83 Other fatigue; R53.1 Weakness; M54.2 Cervicalgia; Z20.822 Contact with and (suspected) exposure to COVID-19
CPT/HCPCS: 36415; 80053; 81003; 81015; 83690; 85025; 87635; 93005; 96361; 96374; 96375; 99283; 99284; C9803; C9113; J1170; J2405

== ENCOUNTER → 2021-01-17 12:51 | Outpatient (CLI) | payer OTHER, MEDICAID, SELFPAY ==
--- NOTE | 2021-01-17 12:53 | DI.RAD.S_ITS ---
PROCEDURE: XR CERVICAL SPINE 4V OR 5V INDICATIONS: chronic neck pain TECHNIQUE: 5 views of the cervical spine were acquired. COMPARISON: [facility], CR, XR CERVICAL SPINE W OBL 4 VW, 02/28/2016, 15:50. FINDINGS: Bones: No fractures or dislocations to the T1 level. No suspicious bony lesions. Loss of lordosis which could be related to muscle spasm, rigidity or simply positional. Trace retrolisthesis C4-C5. Mild multilevel mid and lower cervical spine disc degeneration, most notably at the C6-C7 and C7-T1 levels. Mild multilevel uncovertebral hypertrophy. Oblique views demonstrating mild bilateral neural foraminal narrowing at the C4-C5 and C5-C6 levels. There is normal range of motion between flexion and extension, with preserved normal bony alignment. Soft tissues: Prevertebral soft tissues are normal in thickness. IMPRESSION: Multilevel spondylosis. Dictated by: Alan Gonzales [facility] Interpreted: Ishan Emerson MD on 01/17/2021 at 14:14 Transcribed by: HALIE on 01/17/2021 at 14:16 Approved by: Ishan Emerson M.D. on 01/17/2021 at 15:38
== END ==
PROVIDERS: PCP Family Medicine; Referring Provider Family Medicine; Visit Provider Family Medicine
DX: M54.2 Cervicalgia (principal); M47.812 Spondylosis without myelopathy or radiculopathy, cervical region; M48.02 Spinal stenosis, cervical region; M54.6 Pain in thoracic spine; G89.29 Other chronic pain
CPT/HCPCS: 72050

== ENCOUNTER → 2021-04-19 08:47 | Outpatient (CLI) | payer OTHER, MEDICAID, SELFPAY ==
[2021-04-19 13:02] LABS: COVID19 -Nasal RAPID Negative (Negative)
== END ==
PROVIDERS: PCP Family Medicine; Visit Provider Nurse Practitioner Family
DX: Z20.822 Contact with and (suspected) exposure to COVID-19 (principal); R05.9 Cough, unspecified; R43.0 Anosmia; R43.2 Parageusia; R52 Pain, unspecified
CPT/HCPCS: 87635

== ENCOUNTER → 2021-05-19 16:08 | Outpatient (CLI) | payer OTHER, MEDICAID, SELFPAY ==
--- NOTE | 2021-05-19 | DI.MRI.S_ITS ---
PROCEDURE: MR CERVICAL SPINE WO CON INDICATIONS: Spinal stenosis, cervical region TECHNIQUE: Noncontrast sagittal T1 spin echo and T2 fast spin echo, sagittal STIR, foraminal oblique sagittal T2 fast spin echo, and axial gradient echo or T2 fast spin echo through the cervical spine. COMPARISON: [facility], MR, MR CERVICAL SPINE WO CON, 11/02/2019, 9:55. [facility], CR, XR CERVICAL SPINE 4V OR 5V, 01/17/2021, 12:50. FINDINGS: Image quality: This examination is limited by involuntary motion artifact. Alignment and Curvature: There is normal bony alignment. Bone Marrow: Marrow demonstrates normal overall signal. Spinal Cord: Visualized spinal cord has normal size and signal. No cerebellar tonsillar herniation. Paraspinous Soft Tissues: No paravertebral masses. Prevertebral soft tissues are normal in thickness. C2-C3: The disc height is well-preserved. Loss of disc signal is seen at this level. A mild degree of generalized disc osteophyte complex is seen. Moderate facet joint hypertrophy is seen. There is moderate right-sided and minimal left-sided neural foraminal narrowing seen. No significant central canal narrowing is seen. When comparison is made with the prior images, these findings are similar. C3-C4: The disc height is well-preserved. Loss of disc signal is seen at this level. Mild to moderate disc osteophyte complex is seen. Moderate facet hypertrophy is seen, right worse than left. There is at least moderate right-sided and no significant left-sided neural foraminal narrowing seen. Mild to moderate central canal narrowing is seen. There is associated mass effect upon the ventral spinal cord. Stable from the prior study. C4-C5: The disc height is well-preserved. Loss of disc signal is seen at this level. At least moderate disc osteophyte complex is seen, which is eccentric to the right. Uncovertebral joint hypertrophy is seen at this level. At least moderate facet hypertrophy is seen. There is moderate left-sided and mild right-sided neural foraminal narrowing seen. Mild central canal narrowing is seen, with associated mild mass effect upon the ventral spinal cord. When comparison is made with the prior images, these findings are similar. C5-C6: The disc height is well-preserved. Loss of disc signal is seen at this level. Moderate disc osteophyte complex is seen, with a central/right disc osteophyte protrusion, which continues into the right neural foramen, as on series 4, image 25. At least moderate facet hypertrophy is seen. There is moderate bilateral neural foraminal narrowing seen. Moderate central canal narrowing is seen. There is associated mass effect upon the ventral spinal cord. A right-sided disc osteophyte protrusion is clearly progressed compared to 2020. C6-C7: The disc height is well-preserved. Loss of disc signal is seen at this level. Bridging endplate osteophytes are seen. At least moderate disc osteophyte complex is seen. There is a disc osteophyte protrusion seen within the right lateral recess and within the right foraminal region, as on series 4, image 30. There is moderate to severe bilateral neural foraminal narrowing seen. Moderate to severe central canal narrowing is seen, with associated mass effect upon the ventral spinal cord. When compared to 2020, these degenerative changes appear mildly progressed. C7-T1: The disc height and disc signal are relatively well preserved. Mild to moderate disc osteophyte complex is seen. There is [id number] left-sided and no significant right-sided neural foraminal narrowing seen. No significant central canal narrowing is seen. Stable from the prior study. IMPRESSION: Premature cervical spine degenerative changes are seen, which have progressed at C5-C6 and C6-C7 compared to the 2020 MRI examination. Dictated by: Nikko Byrne M.D. on 05/19/2021 at 16:30 Approved by: Nikko Byrne M.D. on 05/19/2021 at 16:37
[2021-05-19 18:07] LABS: Add Manual Diff / Slide Review NO; Alanine Aminotransferase 19 IU/L (<50); Albumin 4.5 g/dL (3.5-5.0); Albumin Globulin Ratio 1.7 (1.0-2.8); Alkaline Phosphatase 73 U/L (38-126); Aspartate Aminotransferase 34 IU/L (17-59); BUN Creatinine Ratio 19.8 (6-22); Basophils Absolute Auto 100 /uL (0-100); Basophils Percent Auto 1.1 % (0-2); Bilirubin Total 0.8 mg/dL (0.2-1.3); Blood Urea Nitrogen 20 mg/dL (9-20); Carbon Dioxide 29 mmol/L (22-32); Chloride 102 mmol/L (98-107); Eosinophils Absolute Auto 500 /uL (0-450); Eosinophils Percent Auto 8.3 % (2-4); Estimated Glomerular Filt Rate > 60.0 mL/min (>60); Globulin 2.7 g/dL (1.7-4.1); Glucose 120 mg/dL (70-100); HEMOLYSIS < 15 (0-50); Hematocrit 43.7 % (41-53); Hemoglobin 15.3 g/dL (13.5-17.5); Lymphocytes Absolute Auto 2500 /uL (1100-4500); Lymphocytes Percent Auto 41.1 % (25-40); Mean Corpuscular Hemoglobin 31.3 PG (26-34); Mean Corpuscular Volume 89.4 fL (80-100); Monocytes Absolute Auto 600 /uL (0-900); Monocytes Percent Auto 9.8 % (3-14); Neutrophils Absolute Auto 2400 /uL (1500-7000); Neutrophils Percent Auto 39.7 % (50-75); Platelet Count 214 X10^3/uL (150-400); Red Blood Cell Count 4.88 X10^6/uL (4.5-5.9); Red Cell Distribution Width 13.2 % (11.6-14.8); Sodium 140 mmol/L (137-145); Total Protein 7.2 g/dL (6.3-8.2)
[2021-05-31 15:57] LABS: SARS-CoV-2 Antibody Titer <0.8
== END ==
PROVIDERS: PCP Family Medicine; Referring Provider Physician Assistant Surgical; Visit Provider Physician Assistant Surgical
DX: S16.1XXA Strain of muscle, fascia and tendon at neck level, initial encounter (principal); M48.02 Spinal stenosis, cervical region; M47.812 Spondylosis without myelopathy or radiculopathy, cervical region; K62.5 Hemorrhage of anus and rectum; R73.01 Impaired fasting glucose; Z20.822 Contact with and (suspected) exposure to COVID-19; X58.XXXA Exposure to other specified factors, initial encounter
CPT/HCPCS: 36415; 72141; 80053; 85025; 86769

== ENCOUNTER → 2022-01-12 17:33 | Outpatient (CLI) | payer OTHER, MEDICAID, SELFPAY ==
--- NOTE | 2022-01-12 17:36 | DI.MRI.S_ITS ---
PROCEDURE: MR THORACIC SPINE WO CON INDICATIONS: eval cervical/thoracic pain TECHNIQUE: Noncontrast sagittal T1 spine echo and T2 fast spin echo, sagittal STIR, and T2 fast spin echo through the thoracic spine. COMPARISON: [facility], , MR CERVICAL SPINE WO CON, 01/12/2022, 17:44. FINDINGS: Image quality: Excellent. Alignment and Curvature: There is normal bony alignment. Bone Marrow: Marrow is of normal overall signal. No acute vertebral body compression fractures. Spinal Cord: Visualized spinal cord is normal in size and signal. Paraspinous Soft Tissues: No paravertebral masses. Miscellaneous: On axial images, central canal and foramina appear widely patent at all scanned levels. T4-T5: Mild central posterior disc protrusion indenting on the cord without canal stenosis. T5-T6: Minimal right paracentral disc protrusion without canal stenosis. T7-T8: Mild left paracentral disc protrusion abutting the cord without canal stenosis. IMPRESSION: 1. Small protrusions T4-T5, T5-T6, and T7-T8 may correlate with thoracic back pain. 2. No canal stenosis or foraminal stenosis. Normal thoracic cord. Dictated by: Geoffrey Barron M.D. on 01/14/2022 at 7:09 Approved by: Geoffrey Barron M.D. on 01/14/2022 at 7:13
--- NOTE | 2022-01-12 17:36 | DI.MRI.S_ITS ---
PROCEDURE: MR CERVICAL SPINE WO CON INDICATIONS: eval cervical/thoracic pain TECHNIQUE: Noncontrast sagittal T1 spin echo and T2 fast spin echo, sagittal STIR, foraminal oblique sagittal T2 fast spin echo, and axial gradient echo or T2 fast spin echo through the cervical spine. COMPARISON: [facility], CR, XR CERVICAL SPINE 2 OR 3 VIEWS, 11/24/2021, 16:09. [facility], MR, MR CERVICAL SPINE WO CON, 05/19/2021, 16:46. FINDINGS: Image quality: Excellent. Alignment and Curvature: There is normal bony alignment. Remote ACDF C5-C6 and C6-C7. This occurred since the most recent prior MRI. Bone Marrow: Marrow demonstrates normal overall signal. Spinal Cord: Visualized spinal cord has normal size and signal. No cerebellar tonsillar herniation. Paraspinous Soft Tissues: No paravertebral masses. Prevertebral soft tissues are normal in thickness. C2-C3: Mild disc bulge. AP diameter of the canal is 11 mm. Mild right facet hypertrophy. [id number] right foraminal foraminal nerve root. C3-C4: Mild disc bulge. AP diameter of the canal is 10.5 mm. Mild right facet joint hypertrophy. Right uncovertebral joint hypertrophy. Moderate to severe right foraminal narrowing with a mild degree right C4 foraminal nerve root impingement. C4-C5: AP diameter of the canal is 11 mm. Mild bilateral uncovertebral joint hypertrophy. Mild right and moderate left foraminal narrowing. C5-C6: Interval ACDF. AP diameter of the canal is 10.5 mm. Bilateral uncovertebral joint hypertrophy and bilateral facet hypertrophy. Moderate bilateral foraminal narrowing. C6-C7: Interval ACDF. AP diameter of the canal is 9.1 mm. Bilateral uncovertebral joint hypertrophy. Bilateral facet hypertrophy. Bilateral moderate to severe foraminal narrowing with a degree of bilateral C7 foraminal nerve root impingement. C7-T1: Normal appearance. IMPRESSION: 1. Interval ACDF at C5-C6 and C6-C7. 2. Multilevel facet arthropathy. 3. Findings are most significant at C6-C7, where there is moderate canal stenosis and moderate to severe bilateral foraminal narrowing. 4. There is also moderate to severe right foraminal narrowing C3-C4 Dictated by: Geoffrey Barron M.D. on 01/14/2022 at 9:43 Approved by: Geoffrey Barron M.D. on 01/14/2022 at 10:07
== END ==
PROVIDERS: PCP Pediatrics; Referring Provider Pediatrics; Visit Provider Pediatrics
DX: M47.812 Spondylosis without myelopathy or radiculopathy, cervical region (principal); M47.22 Other spondylosis with radiculopathy, cervical region; M51.24 Other intervertebral disc displacement, thoracic region; M48.02 Spinal stenosis, cervical region; M54.2 Cervicalgia; G89.29 Other chronic pain; Z15.89 Genetic susceptibility to other disease; Z98.1 Arthrodesis status
CPT/HCPCS: 72141; 72146

== ENCOUNTER → 2022-02-03 13:37 | Outpatient (CLI) | payer OTHER, MEDICAID, SELFPAY ==
--- NOTE | 2022-02-03 13:40 | DI.CT.S_ITS ---
PROCEDURE: CT CERVICAL SPINE WO CON INDICATIONS: Arthrodesis status TECHNIQUE: Noncontrast 3 mm thick sections acquired from the skull base to the T4 level. Sagittal and coronal reformats were then constructed. For radiation dose reduction, the following was used: automated exposure control, adjustment of mA and/or kV according to patient size. COMPARISON: [facility], MR, MR CERVICAL SPINE WO CON, 01/12/2022, 17:44. FINDINGS: Image quality: Excellent. Bones: No fractures or dislocations. Visualized superior ribs are intact. Discectomy and fusion at C5-6 and C6-7 associated with low profile instrumentation in good position. At C6-7, ligamentum flavum laxity and posterior ridging results in [id number] central stenosis. At C3-4, disc space is maintained. Posterior disc bulge results in mild central stenosis. No foraminal stenosis At C4-5, disc space narrowing and posterior disc osteophyte complex also results in mild central without foraminal stenosis. Soft tissues: Prevertebral soft tissues are normal in thickness. No paravertebral hematomas. No apical pneumothoraces. IMPRESSION: Paragraphs 1. Anterior cervical discectomy and fusion at C5-6 and C6-7 with low profile anterior hardware in good position. No evidence of hardware failure or loosening. 2. Persistent mild to moderate central stenosis C6-7 Approved by: Jass Powell M.D. on 02/03/2022 at 15:14
== END ==
PROVIDERS: PCP Pediatrics; Referring Provider Physician Assistant Surgical; Visit Provider Physician Assistant Surgical
DX: Z98.1 Arthrodesis status (principal); M48.02 Spinal stenosis, cervical region
CPT/HCPCS: 72125

== ENCOUNTER → 2022-05-04 19:50 | Outpatient (CLI) | payer OTHER, MEDICAID, SELFPAY ==
--- NOTE | 2022-05-04 19:51 | DI.MRI.S_ITS ---
PROCEDURE: MR LUMBAR SPINE WO CON INDICATIONS: Low back pain, unspecified TECHNIQUE: Noncontrast sagittal T1 spin echo and T2 fast echo, sagittal STIR, and T2 fast spin echo through the lumbar spine. In cases with scoliosis, additional coronal T2 fast spin echo may be performed. COMPARISON: None. FINDINGS: Image quality: Limited by motion artifact Alignment and Curvature: There is normal bony alignment. Bone Marrow: Marrow is of normal overall signal. No acute vertebral body compression fractures. Spinal Cord: Conus medullaris terminates at the L1 level. Visualized cord demonstrates normal signal and size. Paraspinous Soft Tissues: No paravertebral masses. T12-L1: Normal appearance. L1-L2: Normal appearance. L2-L3: Normal appearance. L3-L4: Normal appearance. L4-L5: Normal appearance. L5-S1: Normal appearance. IMPRESSION: Normal MRI of the lumbar spine. No central or foraminal stenosis throughout the exam. Approved by: Jass Powell M.D. on 05/05/2022 at 6:47
== END ==
PROVIDERS: PCP Pediatrics; Referring Provider Orthopaedic Surgery; Visit Provider Orthopaedic Surgery
DX: M54.50 Low back pain, unspecified (principal)
CPT/HCPCS: 72148

== ENCOUNTER 2022-07-26 02:56 | Emergency (ER) | payer OTHER, MEDICAID, SELFPAY ==
[2022-07-26 03:05] VITALS: BP 133/92; PULSE 87; RESP 15; TEMP 36.7; O2SAT 96; BMI 28.5
[2022-07-26] MEDS: LIDOCAINE 1% (PF) 5 ML INJ ×2 (03:17→03:56)
--- NOTE | 2022-07-26 03:53 | DI.RAD.S_ITS ---
PROCEDURE: XR HAND RT MIN 3V INDICATIONS: laceration by knife TECHNIQUE: 3 views of the hand(s) acquired. COMPARISON: [facility], , HAND 3V RIGHT, 12/22/2014, 12:15. FINDINGS: Bones: No acute fractures or dislocations. Fifth metacarpal deformity of remote, healed fracture. Remote, nonunited ulnar styloid fracture. Carpal bones are normally aligned. No suspicious bony lesions. Soft tissues: No suspicious soft tissue calcifications. Mild proximal 2nd and 3rd digit soft tissue swelling without foreign body. IMPRESSION: 1. No fracture or foreign body. 2. Final interpretation is concordant with preliminary report. Dictated by: Rosa Hernandez M.D. on 07/26/2022 at 9:24 Approved by: Rosa Hernandez M.D. on 07/26/2022 at 9:25
--- NOTE | 2022-07-26 03:55 | ED.WOUNDLAC ---
HPI - Wound/Laceration General Chief Complaint: Wound/Laceration Stated Complaint: finger laceration Time Seen by Provider: 07/26/22 03:01 Source: patient and EMS Mode of arrival: EMS History of Present Illness HPI narrative: Patient is a 42-year-old male with history of chronic neck pain, TBI depression and anxiety presents today with right index finger and middle finger laceration. He reports grabbing a bread knife which he uses as his home defense and slicing his finger. There was quite a lot of blood loss. He has inability to flex index finger. 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 Middle finger also has a small laceration as well. Related Data Home Medications Medication Instructions Recorded Confirmed [cannabis] ##0 07/04/17 05/25/22 naloxone 4 mg/actuation nasal spray intranasal 06/28/21 05/25/22 spray (Narcan) hydroxyzine HCl 25 mg tablet 25 mg PO TID PRN 06/12/22 Previous Rx's Medication Instructions Recorded ketoconazole 2 % shampoo 1 applictn topical QDAY #120 mL 08/27/18 back brace #1 ea 09/15/18 triamcinolone acetonide 0.1 % 1 applictn topical BID #1 tube 08/21/19 topical cream dibucaine 1 % rectal ointment 1 applictn DE PRN PRN rectal 09/04/19 (Nupercainal) discomfort #1 tube fluoxetine 20 mg capsule 20 mg PO DAILY #90 caps 08/30/21 omeprazole 40 mg capsule,delayed 40 mg PO QAM #90 caps 10/31/21 release lidocaine 5 % topical patch See Rx Instructions .Route 02/06/22 .COMPLEX #30 ea methocarbamol 500 mg tablet 500 mg PO Q8H PRN muscle spasm 05/03/22 #270 tabs quetiapine 100 mg tablet 300 mg PO BEDTIME #90 tabs 05/15/22 gabapentin 600 mg tablet 600 mg PO TID #270 tabs 05/25/22 oxycodone-acetaminophen 7.5 mg-325 1 tab PO Q6H PRN pain #90 tabs 07/02/22 mg tablet prazosin 2 mg capsule 6 mg PO BEDTIME #90 caps 07/02/22 clonazepam 1 mg tablet 1 mg PO TID PRN anxiety #90 tabs 07/03/22 cephalexin 500 mg capsule 500 mg PO BID 7 days #14 caps 07/26/22 Allergies Allergy/AdvReac Type Severity Reaction Status Date / Time tizanidine AdvReac Intermediate NEAR Verified 07/05/22 14:08 SYNCOPE meloxicam AdvReac Mild Vomiting Verified 07/05/22 14:08 Review of Systems Review of Systems ROS Unobtainable: All systems reviewed & are unremarkable except as noted in HPI and below Patient History Medical History Ankle pain () Anxiety (1994) Cervical spinal stenosis Chronic back pain (1994) Chronic headaches (1994) Chronic neck pain Chronic right shoulder pain Chronic thoracic back pain Colon polyps Depression (1994) Eczema (2007) Foraminal stenosis of cervical region Fractures (1994) Hearing loss (2002) Hemorrhoids (2007) HLA-B27 positive Low back pain PTSD (post-traumatic stress disorder) (1994) RLS (restless legs syndrome) Segmental and somatic dysfunction of abdomen and other regions Shoulder pain (1994) SLAP (superior labrum from anterior to posterior) lesion Sleep apnea Vertigo (1978) Surgical History Anesthesia History of colonoscopy with polypectomy Status post arthroscopy (1994) Family History Brother Seizure disorder Mother History of hip replacement, total Social History Smoking Status: Former smoker Smoking Status: Former smoker tobacco type: vaping alcohol intake frequency: holidays/special occasions only Substance Use Type: marijuana Exam Initial Vital Signs Initial Vital Signs: Vital Signs Temperature 98.1 F 07/26/22 03:05 Pulse Rate 87 07/26/22 03:05 Respiratory Rate 15 07/26/22 03:05 Blood Pressure 133/92 H 07/26/22 03:05 Pulse Oximetry 96 07/26/22 03:05 Oxygen Delivery Method 07/26/22 03:05 GENERAL: Well-appearing, well-nourished and in no acute distress. CARDIOVASCULAR: peripheral pulses in tact, cap refill <2 sec RESPIRATORY: No respiratory distress, speaks in full sentences without difficulty EXTREMITIES: Normal range of motion, no clubbing or edema. Neurovascularly intact NEUROLOGICAL: Cranial nerves II through XII grossly intact. Normal gait and speech. SKIN: Right index finger 5 cm laceration palmar side between PIP and MCP on able to flex finger at PIP and DIP slightly decreased sensation at tip Procedures Laceration Repair Laceration 1: Side (If applicable): right (Index finger) Size (cm): 5 Depth: involves muscle layer and involves tendon Local Anesthetic: lidocaine 1% Amount of anesthesia used (mL): 5 Skin layer closed with: nylon Skin layer suture size: 4-0 Number of sutures: 6 Technique: simple, interrupted Subcutaneous layer closed with: vicryl Subcutaneous layer suture size: 5-0 Number of sutures: 2 Tendon layer closed with: vicryl Tendon layer suture size: 5-0 Number of sutures: 2 Technique: simple interrupted Laceration 2: Side (If applicable): right (middle) Size (cm): 2 Description: linear Depth: simple, single layer Local Anesthetic: lidocaine 1% Pre-repair: wound explored, irrigated extensively and deep structures intact Skin layer closed with: nylon Skin layer suture size: 4-0 Number of sutures: 2 Course Orders Ordered: ED Orders 07/26/22 03:53 XR hand RT min 3V Stat Discontinued Medications Diphtheria/Tetanus/Acell Pertussis (Tet,Diph,Pertuss(Acell),Vac/Pf 0.5 Ml Syringe) 0.5 ml IM .ONCE ONE Stop: 07/26/22 03:53 Last Admin: 07/26/22 04:11 Dose: 0.5 ml Documented By: KIRBY Lidocaine HCl (Lidocaine 1% (Pf) 2ml) 4 ml SUBCUT NOW ONE Stop: 07/26/22 03:02 Lidocaine HCl (Lidocaine 1% (Pf) 5 Ml) 5 ml INJ NOW ONE Stop: 07/26/22 03:08 Last Admin: 07/26/22 03:17 Dose: 5 ml Documented By: SANAM Lidocaine HCl (Lidocaine 1% (Pf) 5 Ml) 5 ml INJ NOW ONE Stop: 07/26/22 03:52 Last Admin: 07/26/22 03:56 Dose: 5 ml Documented By: KIRBY Vital Signs Vital signs: Vital Signs - 8 hr 07/26/22 03:05 Temperature 98.1 F Pulse Rate 87 Respiratory Rate 15 Blood Pressure 133/92 H Pulse Oximetry 96 Oxygen Delivery Method Room Air MDM - Wound/Laceration Imaging Data Extremity x-ray #1: Radiologist's Impression: Preliminary report soft tissue swelling of the 2nd and 3rd digits without fracture or foreign body remote fractures of ulnar styloid process and 5th metacarpal MDM Narrative Medical decision making narrative: 42-year-old male with significant laceration right index finger with tendon involvement. With inability to flex. Wound is closed. X-ray is reviewed he is given tetanus shot. 0400 Dr. Mccoy is notified recommends calling and following up with clinic in the morning Discharge Plan Departure Patient Disposition: Home Clinical Impression: Flexor tendon laceration of finger with open wound Qualifiers: Encounter type: initial encounter Qualified Code(s): S56.129A - Laceration of flexor muscle, fascia and tendon of unspecified finger at forearm level, initial encounter Instructions: DI for Tendon Repair, DI for Laceration Repair -- Complex Activity Restrictions/Additional Instructions: *You have been diagnosed with right index and middle finger laceration *What to do: You will need to call Orthopedics in the morning to have your tendon repaired. Other sutures will need to come out in about 5-7 days. Keep dressing on for about 24 hours or until you see orthopedics. *Continue to take medications as directed Keflex 500 mg twice a day [facility] *Follow up with your primary care provider in 2-3 days or call [phone] Call orthopedics today when they open around 8 or 830 *Return to ER if you should have redness swelling drainage or any new, worsening or concerning symptoms Prescriptions: New cephalexin 500 mg capsule 500 mg PO BID 7 Days Qty: 14 0RF No Action quetiapine 100 mg tablet 300 mg PO BEDTIME Qty: 90 3RF clonazepam 1 mg tablet 1 mg PO TID PRN (Reason: anxiety) Qty: 90 0RF Rx Instructions: take 1/2 tab up to twice a day during the day for anxiety if it doesn't make you sleepy; take 1 tab at night to help with sleep; do not take more than 3 total during any 24 hour period without contacting provider first; call for refill when needed; this script should get you through approx October 07 [cannabis] Qty: 0 (DME) back brace misc See Dose Instructions .ROUTE .MEDSUPPLY Qty: 1 0RF Dose Instruction: As directed Rx Instructions: As directed Nupercainal 1 % ointment 1 applictn DE PRN PRN (Reason: rectal discomfort) Qty: 1 0RF fluoxetine 20 mg capsule 20 mg PO DAILY Qty: 90 3RF omeprazole 40 mg capsule,delayed release(DR/EC) 40 mg PO QAM Qty: 90 3RF lidocaine 5 % adhesive patch,medicated See Rx Instructions .ROUTE .COMPLEX Qty: 30 3RF Dose Instruction: 1 PATCH TOPICAL DAILY LEAVE ON MOST PAINFUL AREA FOR UP TO 12 HOURS Rx Instructions: 1 PATCH TOPICAL DAILY LEAVE ON MOST PAINFUL AREA FOR UP TO 12 HOURS methocarbamol 500 mg tablet 500 mg PO Q8H PRN (Reason: muscle spasm) Qty: 270 0RF Rx Instructions: 1/2 to 1 tab 1-3 times daily as needed for muscle spasm; watch for excessive sedation or falls; stagger with alprazolam or narcotic; no driving or machinery use; stop tizanidine hydroxyzine HCl 25 mg tablet 25 mg PO TID PRN prazosin 2 mg capsule 6 mg PO BEDTIME MDD 6mg Qty: 90 2RF oxycodone-acetaminophen 7.5-325 mg tablet 1 tab PO Q6H PRN (Reason: pain) Qty: 90 0RF Rx Instructions: Caution regarding sedation and falls potential. Please limit as possible, relying on over the counter pain meds as best you can. ketoconazole 2 % shampoo 1 applictn Topical QDAY Qty: 120 2RF triamcinolone acetonide 0.1 % cream 1 applictn Topical BID Qty: 1 1RF Narcan 4 mg/actuation spray,non-aerosol intranasal gabapentin 600 mg tablet 600 mg PO TID Qty: 270 1RF Referrals: [facility] [Provider Group] Sky Watkins DO [Primary Care Provider] - Rajan Mills MD [Physician] - Stand Alone Forms: Patient Portal/API
[2022-07-26] MEDS: TET,DIPH,PERTUSS(ACELL),VAC/PF 0.5 ML SYRINGE IM (04:11)
== END 2022-07-26 04:25 | disposition home or self-care (01) ==
PROVIDERS: Emergency Provider Emergency Medicine; PCP Family Medicine
DX: S61.210A Laceration without foreign body of right index finger without damage to nail, initial encounter (principal); S61.212A Laceration without foreign body of right middle finger without damage to nail, initial encounter; W26.0XXA Contact with knife, initial encounter; Z23 Encounter for immunization
CPT/HCPCS: 12002; 73130; 90471; 99283; 90715

== ENCOUNTER → 2022-10-03 18:18 | Outpatient (CLI) | payer OTHER, MEDICAID, SELFPAY ==
--- NOTE | 2022-10-03 18:19 | DI.MRI.S_ITS ---
PROCEDURE: MR HAND RT WO CON INDICATIONS: right hand, first finger injury TECHNIQUE: Noncontrast coronal T1 spin echo and T2 fast spin echo with fat saturation, axial proton density fast spin echo and T2 fast spin echo with fat saturation, sagittal T1 spin echo and STIR through the hand and fingers. COMPARISON: None. FINDINGS: Image quality: Excellent. Bones: The bones are normally aligned, without marrow contusions or fractures. No intra-osseous lesions. Interphalangeal joint(s): The accessory and proper collateral ligaments appear intact. The volar plate demonstrates normal morphology. The extensor central slips appear intact on sagittal images. Metacarpophalangeal joint(s): The accessory and proper collateral ligaments appear intact, as well as the volar plate and adjacent deep transverse metacarpal ligaments. The sagittal bands of the extensor perez appear normal. Extensor apparatus: The central slips insert normally on the middle phalangeal base. The conjoint and terminal tendons insert normally on the distal phalangeal bases. More proximal portions of the extensor tendons also appear normal. Flexor apparatus: There is suggestion of ruptured flexor digitorum profundus tendon of the 3rd digit at the level of 3rd middle phalangeal base with up to 3.1 cm distal retraction of torn tendon fibers to the level of mid 3rd proximal phalangeal shaft with extensive surrounding fluid and soft tissue edema. The flexor digitorum superficialis tendon of the 3rd digit is intact. Markedly thickened flexor tendons of 2nd digit is also seen without evidence of full-thickness tendon rupture. There is suggestion of disruption of the A2 gayatri of 3rd digit with fluid deep to adjacent soft tissue edema and fluid. Soft tissues: Significant soft tissue swelling surrounding 2nd digit is seen. Visualized muscles demonstrate normal bulk and internal signal. No intramuscular masses identified. No ganglion cysts. IMPRESSION: 1. Significant 2nd digit soft tissue swelling and edema. No discrete drainable fluid collection. 2. No marrow edema. No acute fracture or dislocation. No suspicious intraosseous lesions. 3. Full-thickness rupture of 3rd digit flexor digitorum profundus tendon at the level of 3rd middle phalangeal base with up to 3.1 cm distal retraction of torn tendon fibers and significant surrounding soft tissue edema and fluid. 4. Thickened flexor tendons of 2nd digit suggestive of tendinosis and low-grade intrasubstance partial-thickness tear. No full-thickness 2nd digit flexor tendon rupture. Dictated by: Pillo Guillen M.D. on 10/04/2022 at 13:49 Approved by: Pillo Guillen M.D. on 10/04/2022 at 13:57
== END ==
PROVIDERS: PCP Family Medicine; Referring Provider Orthopaedic Surgery; Visit Provider Orthopaedic Surgery
DX: S66.112A Strain of flexor muscle, fascia and tendon of right middle finger at wrist and hand level, initial encounter (principal); S64.40XA Injury of digital nerve of unspecified finger, initial encounter; M79.89 Other specified soft tissue disorders; X58.XXXA Exposure to other specified factors, initial encounter
CPT/HCPCS: 73218

== ENCOUNTER 2022-11-29 09:12 | Day surgery (SDC) | payer OTHER, MEDICAID, SELFPAY ==
[2022-11-28 08:36] VITALS: BMI 29.7
[2022-11-29] VITALS (8 sets, daily range): BP systolic 105–118; BP diastolic 68–77; PULSE 69–75; RESP 12–89; TEMP 36.2–36.4; O2SAT 12–94; BMI 28.5
[2022-11-29] MEDS: LACTATED RINGERS 1,000 ML 42 ML IV (09:50)
--- NOTE | 2022-11-29 10:20 | P.HP_ITS ---
History of Present Illness History of Present Illness Date Patient Seen: 11/29/22 Time Patient Seen: 10:00 Chief complaint: Repair/Graft Hand Tendon Narrative: 42-year-old gentleman with a laceration to his right index and middle finger. Laceration resulted in injuries to the flexor tendons to both fingers. Initially after the laceration the patient was able to flex his middle finger but not the index finger. Patient had his index finger flexor tendon repaired. About 6 weeks after his index finger surgery patient noticed the inability to flex his middle finger. Due to this fact we recommend surgery to repair the flexor tendon of his middle finger. At the same time we will evaluate the index finger and see if any tenolysis needed. [facility] Medical History Ankle pain () Anxiety (1994) Cervical spinal stenosis Chronic back pain (1994) Chronic headaches (1994) Chronic neck pain Chronic right shoulder pain Chronic thoracic back pain Colon polyps Depression (1994) Eczema (2007) Foraminal stenosis of cervical region Fractures (1994) Hearing loss (2002) Hemorrhoids (2007) HLA-B27 positive Low back pain PTSD (post-traumatic stress disorder) (1994) RLS (restless legs syndrome) Segmental and somatic dysfunction of abdomen and other regions Shoulder pain (1994) SLAP (superior labrum from anterior to posterior) lesion Sleep apnea Vertigo (1978) Surgical History Anesthesia History of colonoscopy with polypectomy Status post arthroscopy (1994) Family History Brother Seizure disorder Mother History of hip replacement, total Social History household members: spouse Smoking Status: Former smoker alcohol intake: current Meds Home Medications and Allergies Home Medications Medication Instructions Recorded Confirmed Type diazepam 10 mg tablet 10 mg PO BID 11/29/22 11/29/22 History fluoxetine 40 mg capsule 40 mg PO DAILY 11/29/22 11/29/22 History gabapentin 600 mg tablet 600 mg PO TID 11/29/22 11/29/22 History methocarbamol 500 mg tablet 500 mg PO TID 11/29/22 11/29/22 History oxycodone-acetaminophen 5 mg-325 1 tab PO Q8H 11/29/22 11/29/22 History mg tablet (Percocet) prazosin 5 mg capsule 8 mg PO BEDTIME 11/29/22 11/29/22 History trazodone 100 mg tablet 200 mg PO BEDTIME 11/29/22 11/29/22 History Allergies Allergy/AdvReac Type Severity Reaction Status Date / Time ciprofloxacin [From Cipro] Allergy Verified 11/29/22 09:21 tizanidine AdvReac Intermediate NEAR Verified 10/03/22 18:14 SYNCOPE meloxicam AdvReac Mild Vomiting Verified 10/03/22 18:14 Exam Vital Signs (past 8 hours): - 11/29/22 09:48 Temperature 97.4 F L Pulse Rate 69 Respiratory Rate 17 Blood Pressure 105/70 Pulse Oximetry 94 Oxygen Delivery Method Room Air Oxygen Delivery Method Room Air Narrative Exam Narrative: Positive flexion at the D IP and PIP joint of the index finger. Only able to flex the PIP joint of the middle finger. Normal function of the ring and small finger. Assessment & Plan Assessment & Plan narrative: Patient with damage to the flexor tendon of his middle finger and previous repair of the flexor tendon to the index finger. We will plan on repairing the flexor tendon to the middle finger. I did discuss the possibility of a tendon graft. We will also explore the index finger repair to make sure no tenolysis as needed to maximize his overall function.
--- NOTE | 2022-11-29 10:23 | PM.PREOP ---
Pre-operative Note Interval Note History & Physical reviewed/Exam performed by Physician: Yes Changes to H&P: No
[2022-11-29] MEDS: CEFAZOLIN 2 GM/100 ML PREMIX 100 ML IV (10:50)
--- NOTE | 2022-11-29 10:58 | SUR.OPER ---
Supine on padded OR bed, head on pillow, arms secured on padded arm boards at <90 degrees abduction, legs uncrossed, safety belt at thigh, tape over blanket over lower legs. operative hand on hand table
[2022-11-29] MEDS: BUPIVACAINE 0.5% (PF) 30 ML, EPINEPHrine 0.15 MG INJ (12:10)
--- NOTE | 2022-11-29 12:25 | SUR.PHASEI ---
1216 - Received to PACU after general anesthesia. Airway patent, self maintained. Report from ZHANG Barney and Dr Cantu.
--- NOTE | 2022-11-29 12:27 | P.OP_ITS ---
Operative Date/Time/Diagnoses Date of procedure: 11/29/22 Time of procedure: 10:45 Pre-op diagnosis: Right index finger and middle finger flexor tendon laceration Post-op diagnosis: same Procedure & Clinicians Procedure: Right middle finger flexor tendon to repair as well as index finger flexor tendon tenolysis Same procedure as scheduled: Yes Indications: Finger laceration Surgeon: Rajan Mills Click Yes if Unassisted: Yes Anesthesia Type: General Operative Notes Findings: Laceration of the FDP tendons to the middle finger. No sign of any loss of repair to the FDP tendon to the index finger but there was significant scarring that required a tenolysis. Closure Type: primary Estimated Blood Loss (mL): 5 Tourniquet time (min): 74 Procedure in detail: On date of service, patient was met in the holding area where his operative site was signed and witnessed by the OR staff. The surgery was once again discussed with him and his and all their questions and concerns were answered to their full satisfaction. Patient was taken back to the operating theater placed on the operating table in a supine position. Great care was taken to ensure that all bony prominences were appropriately padded. Well-padded tourniquet was placed up along the right upper extremity. Time-out was performed verifying patient's name procedure and operative site. Patient had previously received his preoperative antibiotics. The right arm was prepped and draped in the normal sterile fashion. Esmarch was used to exsanguinate the limb and the tourniquet was turned up to 250 mmHg. A Leandra incision was made to the middle finger starting at the tip of the finger going proximal palmar crease. Fifteen blade was used to incise the skin and fascial tissue. Blunt dissection was then used to expose gayatri system. The neurovascular bundles were identified protected. No sign of any laceration to the digital nerves. The FDS tendon was still intact. There was a laceration to the FDP tendon. The FDP tendon was the level of the mid proximal phalanx. Using 4-0 Supramid sutures we are able to repair the FDP tendon to the remaining distal aspect of the FDP tendon. 4-0 Ethibond was used to close the A2 gayatri as well as A4 gayatri. Those had to be opened to help remove scar tissue due to the subacute nature of the injury. Repairing the pulleys reduce the chance of any bowstringing. And there was good excursion of both the FDS and FDP tendons after gayatri closure. We then turned our attention to the index finger. Incision was made over the A1 gayatri. Fifteen blade was used to incise the skin and fascial tissue. Pickup and a tenotomy was used to dissect down until the A1 gayatri was visualized. A1 gayatri was then opened up giving us access to the FDS and FDP tendons. Atlantic elevator was then placed to do a tenolysis both distally and proximally. This helped free up scarring of both tendons. Once we did the tenolysis we were then able to pull on the tendons at the A1 gayatri and get good flexion of the D IP as well as PIP joint. The wounds were then copiously irrigated and then closed with nylon. The hand was cleaned, dried, and dressed. Patient was placed into the splint and was taken to the PACU in stable condition. Complications: none Post-operative Condition: stable Disposition: PACU Plan for aftercare: Patient will follow our postoperative protocol for flexor tendon repair. No restrictions when dealing with the index finger. It is the middle finger that underwent repair.
[2022-11-29] MEDS: OXYCODONE/ACETAMINOPHEN 5/325 TABLET 1 TAB PO (13:06)
== END 2022-11-29 13:21 | disposition home or self-care (01) ==
PROVIDERS: PCP Family Medicine; Referring Provider Orthopaedic Surgery; Visit Provider Orthopaedic Surgery
PROC: (CPT 26356; principal; 2022-11-29 10:45)
DX: S66.122A Laceration of flexor muscle, fascia and tendon of right middle finger at wrist and hand level, initial encounter (principal); S66.120A Laceration of flexor muscle, fascia and tendon of right index finger at wrist and hand level, initial encounter
CPT/HCPCS: 26356; 26440; J0171; J0690; J1100; J2250; J2405; J2704; J3010

== ENCOUNTER → 2023-01-01 17:34 | Outpatient (CLI) | payer OTHER, MEDICAID, SELFPAY ==
[2023-01-01 18:16] LABS: Add Manual Diff / Slide Review NO; Basophils Absolute Auto 100 /uL (0-100); Basophils Percent Auto 1.1 % (0-2); Eosinophils Absolute Auto 400 /uL (0-450); Eosinophils Percent Auto 7.7 % (2-4); Hemoglobin 14.6 g/dL (13.5-17.5); Lymphocytes Absolute Auto 2300 /uL (1100-4500); Lymphocytes Percent Auto 39.6 % (25-40); Mean Corpuscular HGB Conc 35.5 % (30-36); Mean Corpuscular Hemoglobin 31.5 PG (26-34); Mean Corpuscular Volume 88.6 fL (80-100); Monocytes Absolute Auto 500 /uL (0-900); Neutrophils Absolute Auto 2400 /uL (1500-7000); Neutrophils Percent Auto 42.6 % (50-75); Platelet Count 168 X10^3/uL (150-400); Red Blood Cell Count 4.62 X10^6/uL (4.5-5.9); White Blood Cell Count 5.7 X10^3/uL (4.5-11.0)
[2023-01-01 18:46] LABS: Alanine Aminotransferase 15 IU/L (<50); Albumin 4.2 g/dL (3.5-5.0); Albumin Globulin Ratio 1.5 (1.0-2.8); Alkaline Phosphatase 72 U/L (38-126); Aspartate Aminotransferase 22 IU/L (17-59); BUN Creatinine Ratio 13.7 (6-22); Bilirubin Total 0.5 mg/dL (0.2-1.3); Blood Urea Nitrogen 13 mg/dL (9-20); Calcium 9.1 mg/dL (8.4-10.2); Carbon Dioxide 26 mmol/L (22-32); Chloride 103 mmol/L (98-107); Cholesterol 239 mg/dL (140-199); Estimated Glomerular Filt Rate > 60 mL/min (>60); Globulin 2.8 g/dL (1.7-4.1); Glucose 92 mg/dL (70-100); HDL Cholesterol 60 mg/dL (40-60); HEMOLYSIS < 15 (0-50); LDL Cholesterol Calculated 146 mg/dL (<100); Potassium 4.4 mmol/L (3.4-5.1); Sodium 136 mmol/L (137-145); Triglycerides 165 mg/dL (35-150)
[2023-01-01 19:08] LABS: TSH w/ Reflex to FT4 1.58 uIU/mL (0.47-4.68)
== END ==
PROVIDERS: PCP Family Medicine; Referring Provider Family Medicine; Visit Provider Family Medicine
DX: F32.9 Major depressive disorder, single episode, unspecified (principal); G47.00 Insomnia, unspecified; M48.02 Spinal stenosis, cervical region
CPT/HCPCS: 36415; 80053; 80061; 84443; 85025

== ENCOUNTER → 2023-04-25 16:15 | Outpatient (CLI) | payer OTHER, MEDICAID, SELFPAY ==
--- NOTE | 2023-04-25 16:18 | DI.RAD.S_ITS ---
PROCEDURE: XR CHEST 2V INDICATIONS: Fatigue, vapes marijuana, hx of tobacco use x 20 years TECHNIQUE: 2 views of the chest were acquired. COMPARISON: None. FINDINGS: Surgical changes and devices: None. Lungs and pleura: Lungs are clear. No pleural effusions or pneumothorax. Mediastinum: Mediastinal contours are normal. Heart size is normal. Bones and chest wall: No suspicious bony abnormalities. Soft tissues appear unremarkable. IMPRESSION: No acute cardiopulmonary abnormality is seen. Approved by: Jass Powell M.D. on 04/25/2023 at 18:53
[2023-04-25 18:02] LABS: Hematocrit 44.1 % (41-53); Hemoglobin 15.3 g/dL (13.5-17.5)
[2023-04-25 18:12] LABS: Hemoglobin A1C% w Est Avg Glu 5.1 % (4.0-6.0)
[2023-04-25 18:19] LABS: Cholesterol 237 mg/dL (140-199); HDL Cholesterol 42 mg/dL (40-60); LDL Cholesterol Calculated 171 mg/dL (<100); Triglycerides 118 mg/dL (35-150)
[2023-04-25 18:20] LABS: HEMOLYSIS 15 (0-50); Iron 106 ug/dL (49-181)
[2023-04-25 18:31] LABS: Percent Iron Saturation 37 % (20-50); Total Iron Binding Capacity 289 ug/dL (261-462); Transferrin 236 mg/dL (206-381)
[2023-04-25 18:53] LABS: TSH w/ Reflex to FT4 0.97 uIU/mL (0.47-4.68)
[2023-04-25 18:56] LABS: Ferritin 46 ng/mL (18-464); Testosterone 547 ng/dL (132-813)
[2023-04-25 19:11] LABS: Vitamin B12 735 pg/mL (239-931)
== END ==
PROVIDERS: PCP Family Medicine; Referring Provider Physician Assistant; Visit Provider Physician Assistant
DX: R53.83 Other fatigue (principal); R06.02 Shortness of breath; E78.5 Hyperlipidemia, unspecified; R73.01 Impaired fasting glucose; N52.9 Male erectile dysfunction, unspecified; Z72.89 Other problems related to lifestyle
CPT/HCPCS: 36415; 71046; 80061; 82607; 82728; 83036; 83540; 83550; 84403; 84443; 85014; 85018

== ENCOUNTER 2023-06-13 12:27 | Day surgery (SDC) | payer OTHER, MEDICAID, SELFPAY ==
--- NOTE | 2023-06-13 | PATH_ITS ---
[facility] Accession Number: [id number] No. of containers..04 Tissue . 01 Material submitted: . PART A: stomach - ANTRUM PART B: colon - ASCENDING POLYP PART C: colon - DESCENDING POLYPS PART D: colon - SIGMOID POLYPS . 01 Diagnosis: A. Gastric Antrum, Biopsy: Gastric antral mucosa with focal mild chronic inflammation. Negative for Helicobacter organisms by immunohistochemistry. Negative for intestinal metaplasia. Negative for dysplasia or malignancy. . B. Ascending Colon Polyp: Tubular adenoma. . C. Descending Colon Polyps: Tubular adenomas. . D. Sigmoid Colon Polyps: Tubular adenomas. [facility] 06/24/2023 1339 Local . 01 Electronically signed: . Дмитрий Cooper MD, PhD, Pathologist NPI- [id number] . 01 Gross description: . Part A: ANTRUM: Received in formalin are 3 fragment(s) of ham, soft tissue measuring 0.2 x 0.3 x 0.3 cm to 0.5 x 0.2 x 0.2 cm submitted entirely in 1 cassette(s) Part B: ASCENDING POLYP: Received in formalin is 1 fragment(s) of ham, soft tissue measuring 0.7 x 0.4 x 0.2 cm submitted entirely in 1 cassette(s) Part C: DESCENDING POLYPS: Received in formalin are 3 fragment(s) of ham, soft tissue measuring 0.1 x 0.1 x 0.1 cm to 0.7 x 0.6 x 0.6 cm submitted entirely in 1 cassette(s) Part D: SIGMOID POLYPS: Received in formalin are 3 fragment(s) of ham, soft tissue measuring 0.2 x 0.2 x 0.2 cm to 1.4 x 0.4 x 0.2 cm submitted entirely in 1 cassette(s) /[facility] 06/18/2023 1914 Local . 01 Microscopic: . A. An immunohistochemical stain was performed to evaluate for Helicobacter organisms and is negative. The control stain showed appropriate reactivity. . * This test was developed and its performance characteristics determined by [employer]. It has not been cleared or approved by the U.S. Food and Drug Administration. The FDA has determined that such clearance or approval is not necessary. This test is used for clinical purposes. It should not be regarded as investigational or for research. . 01 Pathologist provided ICD-10: K29.70, D12.6 . 01 CPT . 417754, 022690, 155943, 259640, H81708 Specimen Comment: A courtesy copy of this report has been sent to [phone] Performed at: 01 [facility] [address] [place] [address], [place], [place] [id number] MD Francisco Javier Doss MD Phone: [phone]
[2023-06-13 12:41] VITALS: BMI 28.5
--- NOTE | 2023-06-13 12:58 | P.HP_ITS ---
History of Present Illness History of Present Illness Date Patient Seen: 06/13/23 Time Patient Seen: 12:58 Chief complaint: EGD & Colonoscopy Narrative: Дмитрий is a 43-year-old man with rectal bleeding and reflux. See office note from April for details. [facility] Medical History Fatigue Cervical spinal stenosis HLA-B27 positive Foraminal stenosis of cervical region Chronic right shoulder pain Chronic neck pain Chronic thoracic back pain Low back pain Segmental and somatic dysfunction of abdomen and other regions SLAP (superior labrum from anterior to posterior) lesion Anxiety (1994) PTSD (post-traumatic stress disorder) (1994) Shoulder pain (1994) Fractures (1994) Chronic back pain (1994) Ankle pain () Eczema (2007) Chronic headaches (1994) Depression (1994) RLS (restless legs syndrome) Sleep apnea Vertigo (1978) Hearing loss (2002) Hemorrhoids (2007) Colon polyps Surgical History History of colonoscopy with polypectomy Anesthesia Status post arthroscopy (1994) Family History Brother Seizure disorder Mother History of hip replacement, total Social History household members: spouse Smoking Status: Former smoker alcohol intake: current Meds Home Medications and Allergies Home Medications Medication Instructions Recorded Confirmed Type gabapentin 600 mg tablet 600 mg PO TID 11/29/22 05/14/23 History fluoxetine 40 mg capsule 40 mg PO DAILY #30 caps 02/21/23 05/14/23 Rx methocarbamol 500 mg tablet 500 mg PO TID #270 tabs 02/22/23 05/14/23 Rx alprazolam 1 mg tablet 1 mg PO TID #90 tabs 03/26/23 05/14/23 Rx peg 3350-electrolytes 236 240 ml PO Q10M #4,000 mL 05/07/23 05/14/23 Rx gram-22.74 gram-6.74 gram-5.86 gram solution (Golytely) trazodone 100 mg tablet 200 mg (2 x 100 mg) PO BEDTIME #60 05/07/23 05/14/23 Rx tabs hydroxyzine pamoate 25 mg capsule 25 mg PO TID-QID PRN spasms #60 05/16/23 Rx (Vistaril) caps sildenafil 100 mg tablet 100 mg PO DAILY PRN sexual 05/16/23 Rx activity #30 tabs prazosin 2 mg capsule 8 mg (4 x 2 mg) PO BEDTIME #120 05/28/23 Rx caps lidocaine 5 % topical patch See Rx Instructions topical 06/07/23 Rx .COMPLEX PRN pain #30 ea Allergies Allergy/AdvReac Type Severity Reaction Status Date / Time ciprofloxacin [From Cipro] Allergy Verified 05/14/23 14:58 tizanidine AdvReac Intermediate NEAR Verified 05/14/23 14:58 SYNCOPE meloxicam AdvReac Mild Vomiting Verified 05/14/23 14:58 Assessment & Plan Assessment and plan (1) Rectal bleeding: Status: Acute Plan We will plan to proceed with EGD and colonoscopy. If he has internal hemorrhoids we will perform rubber-band ligation. He would like to proceed.
[2023-06-13] MEDS: LACTATED RINGERS 1,000 ML 100 ML IV (13:00)
--- NOTE | 2023-06-13 13:45 | PM.OP.EC ---
Operative Date/Time/Diagnoses Date of procedure: 06/13/23 Time of procedure: 13:45 Pre-op diagnosis: GERD and rectal bleeding Post-op diagnosis: same Procedure & Clinicians Study performed: Surgeon: Danis Kebede MD Anesthesia: Jonathan Aldana MD Procedure in detail: A timeout was performed. A bite blocked was placed and monitors were attached to the patient. The patient was positioned in the left lateral decubitus position. Sedation was administered. Once the patient was sedated the endoscope was inserted through the bite block and passed through the esophagus and stomach and into the duodenum. No abnormalities were seen. We then withdrew the scope into the stomach. There was some mild antritis and random biopsies were taken from the antrum. The endoscope was retroflexed and no hiatal hernia other abnormalities were seen. The endoscope was straightned and withdrawn into the esophagus. No abnormalities were seen. EGD findings: Mild antritis Next we repositioned the patient for a colonoscopy. A digital rectal exam was performed and mixed hemorrhoids were noted. The colonoscope was inserted and advanced to the cecum. The appendiceal orifice was identified and photographed. The scope was slowly withdrawn over greater than 6 minutes. There was a 5 mm polyp in the ascending colon removed with a cold snare. There were 3 polyps in descending colon. There was a 7 mm polyp removed with a cold snare and 2 9 mm polyps removed with hot snare. There was a 5 mm polyp in the sigmoid colon removed with a cold snare and a 7 mm polyp in the sigmoid colon removed with a hot snare. The scope was retroflexed in the rectum and internal hemorrhoids were noted. The scope was removed. We then performed rubber-band ligation of hemorrhoidal columns in the right anterior and left lateral position. Hemostasis was observed. Colonoscopy findings: 5 mm polyp in the ascending colon, 7 mm polyp in the descending colon, 2 9 mm polyps in the descending colon, 5 mm polyp in the sigmoid colon and 7 mm polyp in the sigmoid colon. Internal hemorrhoids Total procedural EBL: 10 mL Scope withdrawal time: 18 minutes Sedation minutes: 29 minutes Same procedure as scheduled: Yes Surgeon: Danis Kebede Procedure Notes Procedure in detail: Insert EGD colonoscopy Post-procedure Disposition: PACU
[2023-06-13 13:47] VITALS: BP 95/68; PULSE 75; RESP 22; TEMP 37; O2SAT 94
[2023-06-13 13:52] VITALS: BP 93/67; PULSE 72; RESP 19; O2SAT 20
[2023-06-13 13:57] VITALS: BP 102/76; PULSE 62; RESP 12; O2SAT 92
[2023-06-13 14:02] VITALS: BP 121/89; PULSE 71; RESP 14; O2SAT 94
[2023-06-13] MEDS: OXYCODONE IR 5 MG TABLET PO (14:09)
[2023-06-13 14:12] VITALS: BP 122/92; PULSE 67; RESP 16; O2SAT 92
== END 2023-06-13 14:55 | disposition home or self-care (01) ==
PROVIDERS: PCP Family Medicine; Referring Provider Surgery; Visit Provider Surgery
PROC: 0DJ08ZZ Inspection of Upper Intestinal Tract, Via Natural or Artificial Opening Endoscopic (ICD-10-PCS; CPT 43235; principal; 2023-06-13 13:30)
PROC: 0DJD8ZZ Inspection of Lower Intestinal Tract, Via Natural or Artificial Opening Endoscopic (ICD-10-PCS; CPT 45378; 2023-06-13 13:30)
DX: K62.5 Hemorrhage of anus and rectum (principal); K21.9 Gastro-esophageal reflux disease without esophagitis; K64.8 Other hemorrhoids; K29.50 Unspecified chronic gastritis without bleeding; D12.2 Benign neoplasm of ascending colon; D12.4 Benign neoplasm of descending colon; D12.5 Benign neoplasm of sigmoid colon
CPT/HCPCS: 45385; 43239

== ENCOUNTER → 2023-09-11 15:25 | Outpatient (CLI) | payer OTHER, MEDICAID, SELFPAY ==
--- NOTE | 2023-09-11 15:25 | DI.US.S_ITS ---
PROCEDURE: US SCROTUM INDICATIONS: CHRONIC LEFT TESTICULAR PAIN X 20 YRS TECHNIQUE: Real-time scanning was performed of the scrotum and testicles, with image documentation. Color and pulse Doppler interrogation was performed of both testicles. COMPARISON: None. FINDINGS: Right: Testicle is normal in size at 4.6 x 2.2 x 2.5 cm, and homogenous in echotexture. Scattered microlithiasis. Epididymis is normal in overall size and morphology. No hydrocele or varicoceles. Overlying scrotal skin is normal in thickness. Left: Testicle is normal in size at 4.3 x 1.7 x 2.5 cm, and homogeneous in echotexture. Scattered microlithiasis. Epididymal head simple cysts, largest measuring 3 millimeters. Epididymis is otherwise normal in overall size and morphology. No hydrocele or varicoceles. Overlying scrotal skin is normal in thickness. Doppler: Color and pulse Doppler demonstrate normal and symmetric arterial flow in both testicles. IMPRESSION: 1. No cause for patient's pain is identified. 2. Testicular microlithiasis. Dictated by: Brian Lopez M.D. on 09/12/2023 at 8:59 Approved by: Brian Lopez M.D. on 09/12/2023 at 9:02
== END ==
PROVIDERS: PCP Family Medicine; Referring Provider Family Medicine; Visit Provider Family Medicine
DX: N50.819 Testicular pain, unspecified (principal); Z12.5 Encounter for screening for malignant neoplasm of prostate; Z80.42 Family history of malignant neoplasm of prostate
CPT/HCPCS: 36415; 76870; 93975; G0103

== ENCOUNTER → 2023-09-11 15:31 | Outpatient (CLI) | payer OTHER, MEDICAID, SELFPAY ==
[2023-09-11 19:26] LABS: Prostate Specific Antigen Scrn 1.02 ng/mL (0.1-4.0)
== END ==
PROVIDERS: PCP Family Medicine; Referring Provider Family Medicine; Visit Provider Family Medicine
DX: Z12.5 Encounter for screening for malignant neoplasm of prostate (principal); N50.819 Testicular pain, unspecified; Z80.42 Family history of malignant neoplasm of prostate
CPT/HCPCS: 36415; G0103

== ENCOUNTER 2024-03-12 22:16 | Emergency (ER) | payer OTHER, MEDICAID, SELFPAY ==
[2024-03-12 22:18] VITALS: BP 138/103; PULSE 77; RESP 16; TEMP 36.6; O2SAT 97; BMI 26.6
--- NOTE | 2024-03-12 22:30 | ED.GENADULT ---
HPI - General Adult General Chief complaint: Recheck/Abnormal Lab/Rx Stated complaint: anus problems Time Seen by Provider: 03/12/24 22:23 Source: patient Mode of arrival: Ambulatory Limitations: no limitations History of Present Illness HPI narrative: Patient is a 43-year-old male who is here for evaluation of discomfort in his anal region. Has had issues rectal polyps in the past. Had a colonoscopy about a year ago were multiple polyps were removed. He was not on blood thinners. Has had occasional episodes of rectal bleeding so bleeding he was having currently it was not necessarily new. Has discomfort in his rectum. No vomiting. Some vague abdominal pain. No diarrhea. No constipation. No urinary symptoms. Has not tried anything for symptoms prior to arrival. Related Data Previous Rx's Medication Instructions Recorded gabapentin 600 mg tablet 600 mg PO 3XD #270 tabs 11/04/23 sildenafil 100 mg tablet 100 mg PO DAILY PRN sexual 11/04/23 activity #30 tabs hydroxyzine pamoate 25 mg capsule 25 mg PO TID-QID PRN spasms #60 12/10/23 (Vistaril) caps methocarbamol 500 mg tablet 500 mg PO TID #270 tabs 12/10/23 tadalafil 20 mg tablet (Cialis) 20 mg PO DAILY PRN sexual activity 12/16/23 #7 tabs alprazolam 1 mg tablet 1 mg PO TID #90 tabs 01/08/24 duloxetine 30 mg capsule,delayed 30 mg PO BID #60 caps 01/08/24 release trazodone 100 mg tablet 200 mg (2 x 100 mg) PO BEDTIME #60 01/08/24 tabs nicotine 14 mg/24 hr daily 1 patch transdermal DAILY #28 ea 02/06/24 transdermal patch prazosin 2 mg capsule 10 mg (5 x 2 mg) PO BEDTIME #150 02/12/24 caps lidocaine 5 % topical patch 1 patch topical Q3D #30 ea 03/04/24 pramoxine 1 % topical foam 1 applic CO TID #15 grams 03/12/24 (Proctofoam) Allergies Allergy/AdvReac Type Severity Reaction Status Date / Time ciprofloxacin [From Cipro] Allergy Verified 01/21/24 14:58 tizanidine AdvReac Intermediate NEAR Verified 01/21/24 14:58 SYNCOPE meloxicam AdvReac Mild Vomiting Verified 01/21/24 14:58 Review of Systems Review of Systems Narrative: See HPI Patient History Medical History Rotator cuff tendinitis Delayed ejaculation Left varicocele Left testicular pain Cervical spondylosis Orchalgia Fatigue Cervical spinal stenosis HLA-B27 positive Foraminal stenosis of cervical region Chronic right shoulder pain Chronic neck pain Chronic thoracic back pain Low back pain Segmental and somatic dysfunction of abdomen and other regions SLAP (superior labrum from anterior to posterior) lesion Anxiety (1994) PTSD (post-traumatic stress disorder) (1994) Shoulder pain (1994) Fractures (1994) Chronic back pain (1994) Ankle pain () Eczema (2007) Chronic headaches (1994) Depression (1994) RLS (restless legs syndrome) Sleep apnea Vertigo (1978) Hearing loss (2002) Hemorrhoids (2007) Colon polyps Surgical History S/P cervical spinal fusion History of colonoscopy with polypectomy Anesthesia Status post arthroscopy (1994) Family History Brother Seizure disorder Mother History of hip replacement, total COPD (chronic obstructive pulmonary disease) Other Cancer Stroke Social History marital status: household members: spouse occupational status: disabled Smoking Status: Former smoker Tobacco: How many years used: 20 alcohol intake: current caffeine: Yes Smoking Status: Former smoker tobacco type: vaping alcohol intake frequency: a few times a week Substance Use Type: marijuana Exam Initial Vital Signs Initial Vital Signs: Vital Signs Temperature 97.8 F 03/12/24 22:18 Pulse Rate 77 03/12/24 22:18 Respiratory Rate 16 03/12/24 22:18 Blood Pressure 138/103 H 03/12/24 22:18 Pulse Oximetry 97 03/12/24 22:18 Oxygen Delivery Method Room Air 03/12/24 22:18 Const General: cooperative, comfortable and No ill appearing GI Inspection: normal to inspection and non-distended Palpation: soft, No firm, No guarding and No tender Rectal Exam: visual inspection normal, normal sphincter tone, heme negative stool, No hemorrhoids, No laceration, No lesions and tenderness Skin General: no rashes or lesions noted Course Orders Ordered: Discontinued Medications Ibuprofen (Ibuprofen 400 Mg Tablet) 800 mg PO NOW ONE Stop: 03/12/24 22:41 Last Admin: 03/12/24 22:46 Dose: 800 mg Documented By: Vital Signs Vital signs: Vital Signs - 8 hr 03/12/24 22:18 03/12/24 22:54 Temperature 97.8 F 98.6 F Pulse Rate 77 78 Respiratory Rate 16 15 Blood Pressure 138/103 H 134/103 H Pulse Oximetry 97 97 Oxygen Delivery Method Room Air Room Air Medical Decision Making Medical Records Medical records reviewed: Yes I reviewed the patient's medical records. MDM Narrative Medical decision making narrative: No blood in his stool today. No internal or external hemorrhoids felt in the exam. He did have quite a bit of discomfort with the rectal exam. No overt fissures were seen however given his presentation today this would most likely be the source of his discomfort. He has been using preparation H and tucks pads at home. Will add Proctofoam to his regimen. We discussed the importance of a good bowel regimen. Advised that he contact the General surgery Clinic for follow-up as he may need more advanced imaging such as an anoscope for proctoscope. He expressed understanding and agreement. Discharge Plan Departure Patient Disposition: Home Clinical Impression: Anal or rectal pain Instructions: DI for Anal Fissure Activity Restrictions/Additional Instructions: Recommend that you continue to take all of your medications as directed. You can take Tylenol and or ibuprofen for discomfort. You need to make sure that you were having normal regular bowel movements and avoiding issues with constipation and also diarrhea. You can continue with the tucks pads and preparation H. You were given a prescription for Proctofoam. You can pick this up at the pharmacy tomorrow. Also recommend that you contact the general surgery department for a follow-up. Return to the emergency department for new symptoms. Prescriptions: New pramoxine [Proctofoam] 1 % foam 1 applic CO TID Qty: 15 0RF No Action duloxetine 30 mg capsule,delayed release(DR/EC) 30 mg PO BID Qty: 60 2RF alprazolam 1 mg tablet 1 mg PO TID Qty: 90 2RF Rx Instructions: Do not take with opioid medications. trazodone 100 mg tablet 200 mg PO BEDTIME Qty: 60 3RF prazosin 2 mg capsule 10 mg PO BEDTIME MDD 8mg Qty: 150 2RF sildenafil 100 mg tablet 100 mg PO DAILY PRN (Reason: sexual activity) Qty: 30 1RF Rx Instructions: administer 30 minutes to 4 hours before activity gabapentin 600 mg tablet 600 mg PO 3XD Qty: 270 1RF hydroxyzine pamoate [Vistaril] 25 mg capsule 25 mg PO TID-QID PRN (Reason: spasms) Qty: 60 3RF methocarbamol 500 mg tablet 500 mg PO TID Qty: 270 1RF nicotine 14 mg/24 hr patch 24 hour 1 patch transdermal DAILY Qty: 28 1RF lidocaine 5 % adhesive patch,medicated 1 patch topical Q3D Qty: 30 0RF tadalafil [Cialis] 20 mg tablet 20 mg PO DAILY PRN (Reason: sexual activity) Qty: 7 12RF Rx Instructions: administer approximately 30min before sexual activity; do not use more than 1 dose per 24hrs Referrals: Danis Kebede MD [Physician] - Sky Watkins DO [Primary Care Provider] - Stand Alone Forms: Patient Portal/API
[2024-03-12] MEDS: IBUPROFEN 400 MG TABLET 800 MG PO (22:46)
[2024-03-12 22:54] VITALS: BP 134/103; PULSE 78; RESP 15; TEMP 37; O2SAT 97
== END 2024-03-12 23:00 | disposition home or self-care (01) ==
PROVIDERS: Emergency Provider Emergency Medicine; PCP Family Medicine
DX: K62.89 Other specified diseases of anus and rectum (principal)
CPT/HCPCS: 99282; 99283

== ENCOUNTER → 2025-01-26 15:42 | Outpatient (CLI) | payer OTHER, SELFPAY ==
--- NOTE | 2025-01-26 15:43 | DI.CT.S_ITS ---
PROCEDURE: CT CERVICAL SPINE WO CON INDICATIONS: screening TECHNIQUE: Noncontrast 3 mm thick sections acquired from the skull base to the T4 level. Sagittal and coronal reformats were then constructed. For radiation dose reduction, the following was used: automated exposure control, adjustment of mA and/or kV according to patient size. COMPARISON: [facility], CT, CT CERVICAL SPINE WO CON, 02/03/2022, 13:57. FINDINGS: Image quality: Excellent. Bones: No fractures or dislocations. Postsurgical changes from ACDF at C5-C6 and C6-C7. No evidence of hardware complication. Degenerative changes are noted at other levels and similar compared to prior exam. Areas of mild central canal and neural foraminal stenosis are noted. No high-grade stenosis. Visualized superior ribs are intact. Soft tissues: Prevertebral soft tissues are normal in thickness. No paravertebral hematomas. No apical pneumothoraces. IMPRESSION: Status post C5-C6 and C6-C7 ACDF without evidence of hardware complication. Degenerative changes of the cervical spine without high-grade stenosis. Dictated by: Brian Lopez M.D. on 01/26/2025 at 17:54 Approved by: Brian Lopez M.D. on 01/26/2025 at 18:35
== END ==
LOC: CT 15:43
PROVIDERS: PCP Family Medicine; Referring Provider Family Medicine; Visit Provider Family Medicine
DX: M48.02 Spinal stenosis, cervical region (principal); Z98.1 Arthrodesis status
CPT/HCPCS: 72125

== ENCOUNTER → 2025-04-14 15:13 | Outpatient (CLI) | payer OTHER, SELFPAY ==
--- NOTE | 2025-04-14 15:14 | DI.MRI.S_ITS ---
PROCEDURE: MR CERVICAL SPINE WO CON INDICATIONS: chronic neck pain, hx C-spine fusion, abnormal reflexes TECHNIQUE: Noncontrast sagittal T1 spin echo and T2 fast spin echo, sagittal STIR, foraminal oblique sagittal T2 fast spin echo, and axial gradient echo or T2 fast spin echo through the cervical spine. COMPARISON: [facility], MR, MR CERVICAL SPINE WO CON, 05/19/2021, 16:46. [facility], MR, MR CERVICAL SPINE WO CON, 11/02/2019, 9:55. [facility], CT, CT CERVICAL SPINE WO CON, 01/26/2025, 16:06. [facility], MR, MR CERVICAL SPINE WO CON, 01/12/2022, 17:44. FINDINGS: Image quality: There is artifact associated with the metallic hardware. Alignment and Curvature: There is normal bony alignment. Bone Marrow: Marrow demonstrates normal overall signal. Spinal Cord: Visualized spinal cord has normal size and signal. No cerebellar tonsillar herniation. Paraspinous Soft Tissues: No paravertebral masses. Prevertebral soft tissues are normal in thickness. C2-C3: The disc height is well-preserved. Loss of disc signal is seen at this level. A mild degree of generalized disc osteophyte complex is seen. There is a superimposed central disc osteophyte protrusion. Moderate facet joint hypertrophy is seen. There is [id number] right-sided neural foraminal narrowing. No significant left- sided neural foraminal or central canal narrowing can be seen. Stable from the prior study. C3-C4: Mild loss of disc height is seen. Loss of disc signal is seen. Moderate generalized disc osteophyte complex is seen. Uncovertebral joint hypertrophy is seen at this level. There is a superimposed central disc osteophyte protrusion. Moderate facet joint hypertrophy is seen. There is at least moderate right-sided and moderate left-sided neural foraminal narrowing. Mild central canal narrowing is seen. No significant change from the prior. C4-C5: Mild loss of disc height is seen. Loss of disc signal is seen. Moderate generalized disc osteophyte complex is seen. Moderate facet joint hypertrophy is seen. There is at least moderate left-sided and mild right-sided neural foraminal narrowing. Mild central canal narrowing is seen. No significant change from the prior. C5-C6: Postoperative change is seen at this level, with an anteriorly placed fusion device. Moderate generalized disc osteophyte complex is seen. Mild facet joint hypertrophy is seen. Moderate bilateral neural foraminal narrowing is seen. Mild central canal narrowing is seen. No significant change from the prior. C6-C7: Postoperative change is seen, with anteriorly placed fusion device. Moderate generalized disc osteophyte complex is seen. Mild facet joint hypertrophy is seen. There is at least moderate bilateral neural foraminal narrowing. No significant central canal narrowing is seen. No significant change from the prior. C7-T1: Normal appearance. IMPRESSION: Multiple levels of cervical spine degenerative change can be seen, without significant progression compared to 2021. Lower cervical spine postoperative change. Dictated by: Nikko Byrne M.D. on 04/14/2025 at 15:34 Approved by: Nikko Byrne M.D. on 04/14/2025 at 15:39
== END ==
LOC: MRI 15:14
PROVIDERS: PCP Family Medicine; Referring Provider Physical Medicine & Rehabilitation; Visit Provider Physical Medicine & Rehabilitation
DX: M47.812 Spondylosis without myelopathy or radiculopathy, cervical region (principal); M54.2 Cervicalgia; R29.2 Abnormal reflex; Z98.1 Arthrodesis status
CPT/HCPCS: 72141

== ENCOUNTER → 2025-05-10 11:27 | Outpatient (CLI) | payer OTHER, SELFPAY ==
[2025-05-10 12:03] LABS: Add Manual Diff / Slide Review NO; Hematocrit 45.0 % (41-53); Hemoglobin 15.6 g/dL (13.5-17.5); Lymphocytes Absolute Auto 2500 /uL (1100-4500); Mean Corpuscular HGB Conc 34.7 % (30-36); Mean Corpuscular Hemoglobin 31.4 PG (26-34); Mean Corpuscular Volume 90.5 fL (80-100); Platelet Count 164 X10^3/uL (150-400)
[2025-05-10 12:22] LABS: HEMOLYSIS < 15 (0-50); Iron 192 ug/dL (49-181)
[2025-05-10 12:24] LABS: Alanine Aminotransferase 39 IU/L (<50); Albumin 5.0 g/dL (3.5-5.0); Albumin Globulin Ratio 1.7 (1.0-2.8); Alkaline Phosphatase 72 U/L (38-126); Blood Urea Nitrogen 17 mg/dL (9-20); Calcium 9.7 mg/dL (8.4-10.2); Carbon Dioxide 25 mmol/L (22-32); Chloride 103 mmol/L (98-107); Cholesterol 268 mg/dL (140-199); Estimated Glomerular Filt Rate > 60 mL/min (>60); Globulin 2.9 g/dL (1.7-4.1); Glucose 94 mg/dL (70-99); HDL Cholesterol 67 mg/dL (40-60); HEMOLYSIS < 15 (0-50); Magnesium 2.0 mg/dL (1.6-2.3); Potassium 4.9 mmol/L (3.4-5.1); Sodium 139 mmol/L (137-145); Total Protein 7.9 g/dL (6.3-8.2); Triglycerides 153 mg/dL (35-150)
[2025-05-10 12:34] LABS: Percent Iron Saturation 54 % (20-50); Total Iron Binding Capacity 357 ug/dL (261-462); Transferrin 309 mg/dL (206-381)
[2025-05-10 12:53] LABS: TSH w/ Reflex to FT4 1.30 uIU/mL (0.47-4.68)
[2025-05-10 13:11] LABS: Vitamin B12 605 pg/mL (239-931)
== END ==
PROVIDERS: PCP Family Medicine; Referring Provider Family Medicine; Visit Provider Family Medicine
DX: F41.9 Anxiety disorder, unspecified (principal); M54.2 Cervicalgia; G89.29 Other chronic pain; R53.82 Chronic fatigue, unspecified; Z15.89 Genetic susceptibility to other disease
CPT/HCPCS: 36415; 80053; 80061; 82607; 83540; 83550; 83735; 84443; 85025; 85651